=== PATIENT | female | born 1960 | race Caucasian/White ===

== ENCOUNTER 2016-05-01 10:25 | Day surgery (SDC) | payer OTHER ==
[2016-04-28 16:09] VITALS: Ht 154.9 cm; Wt 75.0 kg
[~2016-05-01] VITALS: Ht 154.9 cm; Wt 75.0 kg
[2016-05-01] VITALS (18 sets, daily range): BP systolic 102–139; BP diastolic 64–75; PULSE 75–100; RESP 14–20
[~2016-05-01 10:25] MED LIST: BEN25 PO; CELE100C PO; FENO145T19 PO; FLUT9.9S NASAL; GLIM4TAB PO; LORA10CA PO; MED4DP PO; METF1000 PO; MONT10TA21 PO; PANT40TA3 PO; SOD CHLORIDE 0.9% 1,000 ML IV SCH; VENL75CA89 PO
[2016-05-01] MEDS ORDERED: GABA300C16 PO (11:33)
[2016-05-01] MEDS ORDERED: IBUP800T25 PO (11:33)
[2016-05-01] MEDS ORDERED: MOME13HF INHALATION (11:33)
[2016-05-01] MEDS ORDERED: BETA60LO TP (11:33)
[2016-05-01 11:50] LABS: ADD SCAN DIFF NO
--- NOTE | 2016-05-01 11:54 | RADRPT ---
PROCEDURE: XR Chest. CLINICAL INDICATION: Shortness of breath. Left breast cancer. Preoperative chest x-ray. TECHNIQUE: A single portable view of the chest was obtained. COMPARISON: 04/21/2015 FINDINGS: The cardiomediastinal silhouette is within normal limits. The lungs and pleural spaces are clear. The soft tissues and osseous structures are unremarkable. IMPRESSION: No acute cardiopulmonary disease. RPTAT: HPNM Physician Beto Date Time Electronically viewed and signed by Carloz Diez Physician on 05/01/2016 11:53 /
[2016-05-01 11:56] LABS: ABNORMAL IP MESSAGE 1; BASOPHILS % 0.5 % (0.0-2.0); EOSINOPHILS # 2.1 10^3/ul (0.0-0.5); EOSINOPHILS % 23.5 % (0.0-7.0); HEMATOCRIT 34.3 % (37.0-47.0); HEMOGLOBIN 11.9 g/dl (12.0-16.0); LYMPHOCYTES % 22.2 % (15.0-51.0); MEAN CORPUSCULAR HEMOGLOBIN 29.2 pg (29.0-33.0); MEAN CORPUSCULAR HGB CONC 34.7 g/dl (32.0-37.0); MEAN CORPUSCULAR VOLUME 84.1 fl (82.0-101.0); MEAN PLATELET VOLUME 10.8 fl (7.4-10.4); MONOCYTE # 0.5 10^3/ul (0.3-0.9); MONOCYTES % 6.2 % (0.0-11.0); NEUTROPHIL # 4.1 10^3/ul (1.6-7.5); PLATELET COUNT 204 10^3/UL (140-415); RED BLOOD COUNT 4.08 10^6/ul (4.20-5.40); RED CELL DISTRIBUTION WIDTH 13.9 % (11.5-14.5); WHITE BLOOD COUNT 8.8 10^3/ul (4.8-10.8)
[2016-05-01 12:07] LABS: INR 0.91; PROTIME 12.3 Sec (12.2-14.2)
[2016-05-01 12:08] LABS: PARTIAL THROMBOPLASTIN TIME 25.3 Sec (25.0-35.0)
[2016-05-01 12:19] LABS: POTASSIUM 3.6 mmol/L (3.5-5.1)
[2016-05-01 12:20] LABS: CALCIUM 9.4 mg/dl (8.4-10.2); CREATININE 0.54 mg/dl (0.44-1.00)
[2016-05-01] MEDS ORDERED: D5W-0.45 NACL + KCL 20 MEQ 1,000 ML IV SCH (12:29)
[2016-05-01] MEDS ORDERED: morphine 2 MG INJ IV PRN (12:30)
[2016-05-01] MEDS ORDERED: ACETAMINOPHEN 1000MG/100ML IV 100 ML IVPB PRN (12:30)
[2016-05-01] MEDS ORDERED: ONDANSETRON 4 MG INJ IV PRN ×3 (12:30→17:00)
[2016-05-01] MEDS ORDERED: PROPOFOL 20 ML ONE (13:19)
[2016-05-01] MEDS ORDERED: MIDAZOLAM 1 MG/ML 2 ML INJ ONE (13:20)
[2016-05-01] MEDS ORDERED: ONDANSETRON 4 MG INJ ONE (13:20)
[2016-05-01] MEDS ORDERED: METOCLOPRAMIDE 10 MG INJ ONE (13:20)
[2016-05-01] MEDS ORDERED: FENTAnyl 50 MCG/ML VIAL ONE (13:20)
[2016-05-01] MEDS ORDERED: BUPIVACAINE 0.25%/EPI (SDV) 30 ML INJ ONE (13:23)
[2016-05-01] MEDS ORDERED: CEFAZOLIN 1 GM INJ ONE (13:29)
[2016-05-01] MEDS ORDERED: EPHEDrine SULFATE 50 MG/5 ML SYG ONE (14:00)
[2016-05-01] MEDS ORDERED: DIPHENHYDRAMINE 50 MG INJ IV PRN (14:30)
[2016-05-01] MEDS ORDERED: HYDROmorphONE (0.2 MG/ML) 10ML SYG IV PRN ×3 (14:30)
[2016-05-01] MEDS ORDERED: MEPERIDINE 25 MG INJ IV PRN (14:30)
[2016-05-01] MEDS ORDERED: OXYCODONE/ACETAMINOPHEN (5/325) TAB PO PRN ×2 (14:30)
[2016-05-01] MEDS ORDERED: METOCLOPRAMIDE 10 MG INJ IV PRN (14:30)
--- NOTE | 2016-05-01 15:35 | OPR ---
DATE OF OPERATION: 05/01/2016 PREOPERATIVE DIAGNOSIS: Invasive cancer, left breast. POSTOPERATIVE DIAGNOSIS: Invasive cancer, left breast. OPERATION PERFORMED: Left partial mastectomy and axillary dissection. ANESTHESIA: General. ANESTHESIOLOGIST: MEAGHAN SOLOMON MD. SURGEON: Richie Desir MD DRIER HELPER: Edwardo Horne MD INDICATIONS FOR PROCEDURE: The patient is an unfortunate 55-year-old female who presented with a re latively large palpable mass in her left breast. She also had evidence of axillary metastasis on cl inical exam. A biopsy confirmed the diagnosis of invasive cancer. She was counseled as to the risk s versus benefits of left partial mastectomy with axillary dissection. She consented and was schedu led for surgery. DESCRIPTION OF PROCEDURE: The patient was brought to the operating theater, placed under general an esthesia. The left breast and axillary regions were prepped and draped in usual sterile fashion. A curvilinear incision was made directly over the palpable mass which was in the upper outer quadrant of the breast. Subcutaneous tissue was dissected with cautery. Skin hooks were then utilized to e levate the skin edges and wide circumferential dissection of the tissue associated with the mass the n took place, taking great care to ensure adequate margin. Specimen was elevated, transected, orien tc, and sent for permanent pathologic analysis. The wound was irrigated. Minimal bleeding was con trolled with cautery. The skin was then reapproximated with 4-0 Vicryl suture in subcuticular fashi on. Attention was then directed to performing the axillary dissection. A 4 cm incision was made in the left axillary hairline. Subcutaneous tissue was dissected with cautery down through the clavipector al fascia with blunt dissection along the chest wall. The long thoracic nerve was identified and ke pt out of harm's way. More superiorly, the axillary vein and thoracodorsal neurovascular bundle was identified and kept out of harm's way laterally. Dissection continued until latissimus dorsi muscl e was identified throughout its course. Node bearing tissue between the 2 nerves was then meticulou sly harvested using LigaSure device. Specimen was removed and sent for permanent pathologic analysi s. The wound was irrigated. Minimal bleeding was controlled with cautery. A #10 [place] Wilmar-Pr att drain was then brought through the left mid axillary line, cut to size, laid within the axilla a nd secured in place in the standard fashion with a 2-0 nylon suture. The skin was then closed with 4-0 Vicryl suture in subcuticular fashion and Dermabond was applied to both incisions. The patient tolerated procedure well. Estimated blood loss was 50 mL. There were no complications and the gracia ent was transported in stable condition to the recovery room. Dictated By: RICHIE BAINS/DANIELA Conf#: [id number] DID#: [id number]
[2016-05-01] MEDS ORDERED: GLUCOSE GEL 15 GRAM TUBE PO PRN ×2 (17:00)
[2016-05-01] MEDS ORDERED: NACL 0.9% 3 ML SYG IV SCH (17:00)
[2016-05-01] MEDS ORDERED: HYDROCODONE/APAP (5/325) TAB PO PRN (17:00)
[2016-05-01] MEDS ORDERED: GLUCOSE GEL 15 GRAM TUBE BUCCAL PRN (17:00)
[2016-05-01] MEDS ORDERED: GLUCAGON 1 MG INJ IM PRN (17:00)
[2016-05-01] MEDS ORDERED: ALBUTEROL/IPRATROPIUM (NEB) 3 ML AMP HHN PRN (17:00)
[2016-05-01] MEDS ORDERED: DEXTROSE 50% 50 ML SYRINGE IV PRN ×2 (17:00)
--- NOTE | 2016-05-01 17:08 | HP ---
DATE OF ADMISSION: 05/01/2016 HISTORY OF PRESENT ILLNESS: The patient is a 55-year-old female known to me from previous admission. The patient had a past medical history of asthma and diabetes. The patient was found to have large palpable mass in the left breast and was evaluated by Dr. Desir in general surgery consu ltation. Patient also had evidence of axillary metastasis on clinical exam. The patient underwent biopsy which confirmed the diagnosis of invasive cancer. The patient was brought to the hospital an d underwent left partial mastectomy and axillary dissection. Postoperatively the patient experience d significant pain and the patient will be admitted for further evaluation and management to medical /surgical floor. PAST MEDICAL HISTORY: Include asthma, hyperlipidemia and diabetes. PAST SURGICAL HISTORY: Status post EGD by Dr. Posey in 04/2015 with notion of mild reflux esophagi tis and fundal gastritis. FAMILY HISTORY: Positive for history of asthma, negative for history of breast and ovarian cancer. SOCIAL HISTORY: Patient lives at home with her family. The patient denies any tobacco use, denies any illicit drug use, denies any alcohol use. ALLERGIES: NO KNOWN ALLERGIES. MEDICATIONS ON ADMISSION: 1. Fenofibrate. 2. Gabapentin. 3. Ibuprofen. 4. Claritin. 5. Metformin. 6. Singulair. 7. Venlafaxine. 8. Dulera. REVIEW OF SYSTEMS: A 12-point review of systems is negative unless what mentioned in the HPI. PHYSICAL ASSESSMENT: GENERAL: Well-developed, obese female currently lethargic but easily arousable. VITAL SIGNS: Temperature is 98.2, pulse is 96, blood pressure is 117/68, respiratory rate 19, oxyge n saturation 97% on 2 liters nasal cannula. HEENT: Head is atraumatic, normocephalic. Pupils equal, round, reactive to light and accommodation . Oral mucosa is pink and moist. NECK: Supple, no cervical lymphadenopathy, no thyromegaly. LUNGS: Clear bilaterally. There is no rhonchi, wheezes, rales noted. CARDIOVASCULAR: Normal S1, S2. No murmurs, gallops, clicks, rubs noted. CHEST: Left chest is status post surgery with dry, clean and intact dressing. ABDOMEN: Protuberant, soft, nondistended, nontender. Bowel sounds present. MUSCULOSKELETAL: There is no edema, clubbing, cyanosis. Pulses equal bilaterally 2+. SKIN: There is no rash, petechiae noted. NEUROLOGIC: Patient is lethargic; however, easily arousable, alert and oriented to name and situati on. Moves all extremities. LABORATORY DATA: On admission, CBC: White blood cells 8.8, hemoglobin 11.9, hematocrit 34.3, plate lets 204. Chemistry: Sodium is 144, potassium 3.6, chloride 106, carbon dioxide 24, anion gap 18, BUN is 17, creatinine 0.54, glucose 102, calcium 9.4. PT is 12.3, INR 0.91, PTT is 25.3. ASSESSMENT AND PLAN: 1. Invasive cancer of the left breast status post left partial mastectomy and axillary dissection. 2. Noninsulin dependent diabetes mellitus. 3. Asthma. 4. Hyperlipidemia. We are going to admit patient to medical/surgical floor. Continue IV fluids. Continue Zofran p.r.n . for nausea and morphine, Tylenol IV p.r.n. for pain. We will resume patient's asthma medication. Continue to monitor blood sugar before meals and at bedtime with NovoLog mild algorithm sliding sca le. Resume metformin. Continue incentive spirometer every hour while patient is awake, CBC and BMP tomorrow. Patient received intraoperative antibiotics. Sequential compression device for deep amy ous thrombosis prophylaxis. Further recommendations based on clinical course. Plan of care discuss ed with Dr. Quezada. Dictated By: MAURO ORTEZ ELECTRICAL ENGINEERING MANAGER for GARO QUEZADA MD SR/NTS Conf#: [id number] DID#: [id number]
[2016-05-01] MEDS: INSULIN ASPART [NOVOLOG] 3 ML PEN SC SCH ×2 (17:40→20:44)
[2016-05-01] MEDS: morphine 2 MG INJ IV PRN (17:49)
[2016-05-01] MEDS: metFORMIN 500 MG TAB PO SCH (18:52)
[2016-05-01] MEDS: ALBUTEROL/IPRATROPIUM (NEB) 3 ML AMP HHN SCH (20:00)
[2016-05-01] MEDS: FAMOTIDINE 20 MG INJ IV SCH (20:43)
[2016-05-01] MEDS: 1/2 NS + KCL 20 MEQ 1,000 ML IV SCH (20:43)
[2016-05-01] MEDS: SALMETEROL/FLUTICASONE 250/50 INHA INH SCH (20:43)
[2016-05-01] MEDS ORDERED: MONTELUKAST 10 MG TAB PO SCH (21:00)
[2016-05-02] VITALS: BP 142/77; PULSE 74; RESP 17
[2016-05-02] MEDS: 1/2 NS + KCL 20 MEQ 1,000 ML IV SCH ×2 (02:38→05:12)
[2016-05-02 05:06] VITALS: BP 142/75; PULSE 66; RESP 17
[2016-05-02] MEDS: HYDROCODONE/APAP (5/325) TAB PO PRN ×2 (06:10→19:40)
[2016-05-02 07:21] LABS: ADD SCAN DIFF NO
[2016-05-02 07:37] LABS: BASOPHILS % 0.3 % (0.0-2.0); EOSINOPHILS # 1.8 10^3/ul (0.0-0.5); EOSINOPHILS % 20.6 % (0.0-7.0); HEMATOCRIT 32.1 % (37.0-47.0); HEMOGLOBIN 11.3 g/dl (12.0-16.0); LYMPHOCYTES # 1.7 10^3/ul (0.8-2.9); LYMPHOCYTES % 19.7 % (15.0-51.0); MEAN CORPUSCULAR HEMOGLOBIN 30.1 pg (29.0-33.0); MEAN CORPUSCULAR HGB CONC 35.2 g/dl (32.0-37.0); MEAN CORPUSCULAR VOLUME 85.6 fl (82.0-101.0); MEAN PLATELET VOLUME 11.2 fl (7.4-10.4); MONOCYTE # 0.5 10^3/ul (0.3-0.9); MONOCYTES % 6.2 % (0.0-11.0); NEUTROPHIL # 4.6 10^3/ul (1.6-7.5); NEUTROPHILS % 52.9 % (39.0-77.0); PLATELET COUNT 206 10^3/UL (140-415); RED BLOOD COUNT 3.75 10^6/ul (4.20-5.40); WHITE BLOOD COUNT 8.7 10^3/ul (4.8-10.8)
[2016-05-02 07:40] LABS: POTASSIUM 3.9 mmol/L (3.5-5.1)
[2016-05-02 07:42] LABS: CREATININE 0.59 mg/dl (0.44-1.00)
[2016-05-02 07:43] LABS: CALCIUM 8.9 mg/dl (8.4-10.2)
[2016-05-02] MEDS: INSULIN ASPART [NOVOLOG] 3 ML PEN SC SCH ×3 (07:50→17:45)
[2016-05-02] MEDS: ALBUTEROL/IPRATROPIUM (NEB) 3 ML AMP HHN SCH ×2 (08:00→14:00)
[2016-05-02 08:04] VITALS: BP 133/74; RESP 18
[2016-05-02] MEDS: SALMETEROL/FLUTICASONE 250/50 INHA INH SCH (08:59)
[2016-05-02] MEDS: metFORMIN 500 MG TAB PO SCH ×2 (08:59→17:57)
[2016-05-02] MEDS: FAMOTIDINE 20 MG INJ IV SCH (08:59)
[2016-05-02] MEDS ORDERED: VENLAFAXINE (XR) 75 MG CAP PO SCH (09:00)
[2016-05-02] MEDS: morphine 2 MG INJ IV PRN (13:56)
[2016-05-02] MEDS ORDERED: CEPASTAT LOZENGE MT PRN (18:00)
[2016-05-02] MEDS ORDERED: HYDR-3498 PO (18:53)
--- NOTE | 2016-05-02 18:56 | PN ---
DATE: 05/02/2016 SUBJECTIVE: This is a followup progress note. No complaint. OBJECTIVE: Vital signs 97.9, 71, 18, 133/74, saturation 98% on 2 liter nasal cannula. LABORATORY DATA: WBC 8700, hemoglobin 11.3, hematocrit 32.1. Wilmar-Cline draining serosanguineou s fluid. In last 24 hours, it has drained 60 mL. Dressing is intact. The wrap around is intact an d is not too tight. EXTREMITIES: The patient moves all the fingers, wrist, hand and elbow on the left side. ASSESSMENT: Postop day #1 with partial mastectomy and axillary dissection for related cancer. The patient is currently stable. The nurses are going to teach the patient the care of the Wilmar-Prat t and patient will go home with Wilmar-Cline drain. To measure it at home every night and record it and go to Dr. Desir' office to follow up. The patient to record measurements by herself. The gracia ent states understanding when it was done by one of the nurses and she understood the instructions. Dictated By: ELVI HAQ MD PS/NTS Conf#: [id number] DID#: [id number]
[2016-05-02 19:58] VITALS: BP 118/70; PULSE 64; RESP 18
--- NOTE | 2016-05-03 19:12 | RADRPT ---
Vent Rate: 69 bpm RR Interval: 0 msec [place] Interval: 154 msec QRS Duration: 94 msec QT Interval: 406 msec QTC Interval: 435 msec P-R-T [place]: 41 - 17 - 35 degrees Normal sinus rhythm Normal ECG Electronically Signed By: Russ Arellano [id number]
== END 2016-05-02 19:57 | disposition home or self-care (01) ==
LOC: SDS 10:25 → MS1 17:05 → SDS 05-02 19:57
PROVIDERS: ATTEND Surgery Surgical Oncology
DX: C50.912 Malignant neoplasm of unspecified site of left female breast (principal); C77.3 Secondary and unspecified malignant neoplasm of axilla and upper limb lymph nodes; E11.9 Type 2 diabetes mellitus without complications; J45.909 Unspecified asthma, uncomplicated
CPT/HCPCS: 19301; 38500; 71010; 80048; 82962; 85025; 85610; 85730; 88309; 93005; J0690; J1170; J1815; J2250; J2270; J2405; J2765; J3010; J3480; Z7512; Z7610

== ENCOUNTER 2016-05-14 21:58 | Inpatient (IN) | payer OTHER ==
[~2016-05-14] VITALS: Ht 152.4 cm; Wt 78.7 kg
[~2016-05-14 21:58] MED LIST changes: -BEN25 PO; +BETA60LO TP; -CELE100C PO; -FLUT9.9S NASAL; +GABA300C16 PO; -GLIM4TAB PO; +HYDR-3498 PO; -MED4DP PO; +MOME13HF INHALATION; -PANT40TA3 PO; -SOD CHLORIDE 0.9% 1,000 ML IV SCH
[2016-05-14 22:06] VITALS: Ht 152.4 cm; Wt 78.7 kg
[2016-05-14] MEDS ORDERED: ONDANSETRON 4 MG INJ IV STA (22:59)
[2016-05-14] MEDS ORDERED: morphine 4 MG/ML VIAL IV STA (22:59)
[2016-05-14 23:30] LABS: ADD SCAN DIFF NO
[2016-05-14 23:31] LABS: ABNORMAL IP MESSAGE 1; HEMATOCRIT 37.8 % (37.0-47.0); HEMOGLOBIN 13.2 g/dl (12.0-16.0); MEAN CORPUSCULAR HEMOGLOBIN 29.9 pg (29.0-33.0); MEAN CORPUSCULAR HGB CONC 34.9 g/dl (32.0-37.0); MEAN CORPUSCULAR VOLUME 85.7 fl (82.0-101.0); MEAN PLATELET VOLUME 10.5 fl (7.4-10.4); PLATELET COUNT 261 10^3/UL (140-415); RED BLOOD COUNT 4.41 10^6/ul (4.20-5.40); RED CELL DISTRIBUTION WIDTH 13.5 % (11.5-14.5); WHITE BLOOD COUNT 9.7 10^3/ul (4.8-10.8)
[2016-05-14 23:51] LABS: INR 0.82; PROTIME 11.3 Sec (12.2-14.2); PT RATIO 0.9
[2016-05-14 23:52] LABS: PARTIAL THROMBOPLASTIN TIME 28.6 Sec (25.0-35.0)
[2016-05-14 23:53] LABS: ALBUMIN 4.6 g/dl (3.3-4.9); POTASSIUM 3.7 mmol/L (3.5-5.1)
[2016-05-14 23:55] LABS: BILIRUBIN,INDIRECT 0.2 mg/dl (0-1.1); BILIRUBIN,TOTAL 0.2 mg/dl (0.2-1.3); CREATININE 0.58 mg/dl (0.44-1.00)
[2016-05-14 23:56] LABS: ALBUMIN/GLOBULIN RATIO 1.35; CALCIUM 9.3 mg/dl (8.4-10.2)
[2016-05-15] LABS: ANISOCYTOSIS OCCASIONAL; EOSINOPHILS # 2.2 10^3/ul (0.0-0.5); LYMPHOCYTES # 2.8 10^3/ul (0.8-2.9); MONOCYTE # 0.7 10^3/ul (0.3-0.9); NEUTROPHIL # 3.8 10^3/ul (1.6-7.5); PLATELET ESTIMATE PLT APPEAR ADEQUATE
--- NOTE | 2016-05-15 00:15 | RADRPT ---
PROCEDURE: XR Chest. CLINICAL INDICATION: Sepsis. TECHNIQUE: Portable AP view of the chest was obtained. COMPARISON: 05/01/2016 FINDINGS: The cardiomediastinal silhouette is within upper normal limits. Suboptimal inspiratory response wit h low lung volumes is noted but there is no evidence of lobar infiltrate. There is no evidence for pleural effusion, pneumothorax or pulmonary vascular congestion. The osseous structures are intact with no evidence for acute abnormality. RPTAT:HJJR IMPRESSION: Suboptimal inspiratory response with low lung volumes but no evidence of acute intrathoracic abnorma lity or change from 05/01/2016 allowing for the different degrees of inspiration. Physician Sara Date Time Electronically viewed and signed by Austyn Jackson Physician on 05/15/2016 00:15 JR/
--- NOTE | 2016-05-15 00:29 | RADRPT ---
PROCEDURE: CT chest without contrast CLINICAL INDICATION: Pain at surgical site TECHNIQUE: CT scan of the chest with contrast was performed without intravenous contrast. Coronal and sagittal images were reformatted. The CTDIvol = 15.89 mGy and DLP = 629.18 mGycm. COMPARISON: Chest x-ray 05/14/2016 FINDINGS: Lungs, airway and pleura: The trachea and bronchi are patent as well as normal in caliber. The ran gs are clear of infiltrates, masses or nodules. The pleural spaces are clear, without effusions. Mediastinum, rodney and cardiovascular: The heart is normal in size. There is no evidence for perica rdial effusion. The thoracic aorta is normal in caliber with moderate atherosclerotic calcification in the arch. Mediastinal lymph nodes are within the limits of normal for size estimated at several millimeters in short axis. No hilar abnormalities are seen on this unenhanced exam. The esophagus is normal in caliber. Osseous structures and musculoskeletal findings: There is preservation of bone architecture and min eralization with no evidence for fracture, lytic or blastic lesion. Within the left breast is an ov oid 7.5 x 5.8 cm collection with a gas/fluid level and attenuation of 13 HU, findings suggesting a h ematoma or postoperative seroma (series 3 image 63). The surrounding fat appears within normal limi ts and therefore abscess is believed to be less likely. A drainage catheter is seen within the left axilla but the distal tip is pointing in a cephalad manner posterior to the previously mentioned co llection that is in the more anterior aspect of the breast. The right axilla is unremarkable. Visualized upper abdomen: No abnormalities are identified. The adrenal glands are normal bilateral ly. RPTAT:HJJR IMPRESSION: 1. Approximately 7.5 x 5.8 cm collection with gas/fluid level in the left breast parenchyma consist ent with a postoperative seroma or hematoma, the left axillary drainage catheter is remote from the collection. 2. No mass, lymphadenopathy, or focal acute infiltrate is identified, the intrathoracic structures are unremarkable. Physician Sara Date Time Electronically viewed and signed by Physician Sara on 05/15/2016 00:28 NEHAL
[2016-05-15 01:00] VITALS: PULSE 74; TEMP 98
[2016-05-15] MEDS ORDERED: VANCOMYCIN 1 GM (PMX) 250 ML IVPB ONE (01:00)
[2016-05-15] MEDS ORDERED: CEFEPIME 2GM/50 ML (PMX) 50 ML IVPB STA (01:00)
[2016-05-15] MEDS ORDERED: SODIUM CHLORIDE 0.9% 1L BAG IV* STA (01:01)
--- NOTE | 2016-05-15 01:32 | ERA ---
ER Documentation Chief Complaint Date/Time DATE: 05/15/16 TIME: 01:29 Chief Complaint s/p left mastectomy 12 days ago, c/o pain/swelling surgery site HPI This is a 55 year female 12 days status post mastectomy comes in with pain and swelling of the surgical site and at the tube drainage site. She has had alternating fevers and chills as well. No nausea no vomiting. No trauma. No other current complaints. ROS All systems reviewed and are negative except as per history of present illness. Medications Home Meds Active Scripts Hydrocodone Bit-Acetaminophen (Hydrocodone Bit-APAP) 5-325MG Tablet, 2 TAB PO Q6H Y for SEVERE PAIN LEVEL 7-10, #30 TAB Prov:MAURO ORTEZ 05/02/16 Reported Medications Betamet Diprop/Prop Gly (Betamethasone Dp 0.05% Lotion) 60 Ml Lotion, 60 ML TP, BOTTLE 05/01/16 Mometasone-Formoterol (Dulera) 200-5 Mcg/Inh - 13 Gm Hfa.aer.ad, 1 PUFFS INHALATION BID, #1 INHALER 05/01/16 Gabapentin* (Gabapentin*) 300 Mg Capsule, 300 MG PO BID, #60 CAP 05/01/16 Fenofibrate Nanocrystallized* (Fenofibrate*) 145 Mg Tablet, 145 MG PO DAILY, TAB 04/21/15 Montelukast Sodium* (Singulair*) 10 Mg Tablet, 10 MG PO QHS, #30 TAB 04/21/15 Loratadine* (Claritin*) 10 Mg Capsule, 10 MG PO DAILY, CAP 04/21/15 Metformin Hcl* (Metformin Hcl*) 1,000 Mg Tablet, 1000 MG PO BID WITH MEALS, #30 TAB 04/21/15 Venlafaxine Hcl* (Venlafaxine Hcl ER*) 75 Mg Cap.er.24h, 75 MG PO DAILY, CAP 04/21/15 Allergies Allergies: Coded Allergies: No Known Allergy (Unverified , 05/14/16) PMhx/Soc History of Surgery: Yes (left breast mastectomy 04/30/2016) Anesthesia Reaction: No Hx Neurological Disorder: No Hx Respiratory Disorders: Yes (asthma) Hx Cardiac Disorders: Yes (high cholesterol) Hx Psychiatric Problems: No Hx Miscellaneous Medical Probl: Yes (LT BREAST CA,diabetes) Hx Alcohol Use: Yes (wine,occasionally) Hx Substance Use: No Hx Tobacco Use: No Smoking Status: Never smoker Physical Exam Vitals Vital Signs Date Time Temp Pulse Resp B/P Pulse Ox O2 Delivery O2 Flow Rate FiO2 05/15/16 01:00 98.0 74 20 147/85 20 Room Air 05/14/16 22:06 97.8 86 20 193/91 20 Physical Exam Const: [] Head: Atraumatic Eyes: Normal Conjunctiva ENT: Normal External Ears, Nose and Mouth. Neck: Full range of motion..~ No meningismus. Resp: Clear to auscultation bilaterally Cardio: Regular rate and rhythm, no murmurs Abd: Soft, non tender, non distended. Normal bowel sounds Skin: Surgical site on breast of mild erythema. More concerning is around the drain site with a surrounding erythema and induration. Back: No midline or flank tenderness Ext: No cyanosis, or edema Neur: Awake and alert Psych: Normal Mood and Affect Result Diagram: 05/14/16230005/14/161 Results 24 hrs Laboratory Tests Test 05/14/16 23:01 White Blood Count 9.710^3/ul Red Blood Count 4.4110^6/ul Hemoglobin 13.2g/dl Hematocrit 37.8% Mean Corpuscular Volume 85.7fl Mean Corpuscular Hemoglobin 29.9pg Mean Corpuscular Hemoglobin Concent 34.9g/dl Red Cell Distribution Width 13.5% Platelet Count 77309^3/UL Mean Platelet Volume 10.5fl Neutrophils % 39.0% Band Neutrophils % 2.0% Lymphocytes % 29.0% Monocytes % 7.0% Eosinophils % 23.0% Neutrophils # 3.810^3/ul Lymphocytes # 2.810^3/ul Monocytes # 0.710^3/ul Eosinophils # 2.210^3/ul Platelet Estimate PLT APPEAR ADEQUATE Anisocytosis OCCASIONAL Prothrombin Time 11.3Sec Prothrombin Time Ratio 0.9 INR International Normalized Ratio 0.82 Activated Partial Thromboplast Time 28.6Sec Sodium Level 138mmol/L Potassium Level 3.7mmol/L Chloride Level 101mmol/L Carbon Dioxide Level 22mmol/L Anion Gap 19 Blood Urea Nitrogen 16mg/dl Creatinine 0.58mg/dl Glucose Level 180mg/dl Lactic Acid Level 3.4mmol/L Calcium Level 9.3mg/dl Total Bilirubin 0.2mg/dl Direct Bilirubin 0.00mg/dl Indirect Bilirubin 0.2mg/dl Aspartate Amino Transf (AST/SGOT) 40IU/L Alanine Aminotransferase (ALT/SGPT) 60IU/L Alkaline Phosphatase 134IU/L Total Protein 8.0g/dl Albumin 4.6g/dl Globulin 3.40g/dl Albumin/Globulin Ratio 1.35 Current Medications Medications (Trade) Dose Ordered Sig/Kianna Route PRN Reason Start Time Stop Time Status Last Admin Dose Admin Morphine Sulfate (morphine) 4 mg ONCE STAT IV 05/14/16 22:59 05/14/16 23:00 DC 05/14/16 23:21 Ondansetron HCl 4 mg 4 mg ONCE STAT IV 05/14/16 22:59 05/14/16 23:00 DC 05/14/16 23:21 Cefepime HCl 50 ml @ 100 mls/hr ONCE STAT IVPB 05/15/16 01:00 05/15/16 01:29 DC 05/15/16 01:10 Vancomycin HCl (Vancocin) 250 ml @ 125 mls/hr ONCE ONCE IVPB 05/15/16 01:00 05/15/16 02:59 Sodium Chloride (NS) 2,420 ml BOLUS OVER 2 HOURS STAT IV* 05/15/16 01:01 05/15/16 01:02 DC 05/15/16 01:10 Procedures/MDM EKG: Rate/Rhythm: Normal Sinus Rhythm QRS, ST, T-waves: No changes consistent w/ acute ischemia Impression: No evidence of ischemia or arrhythmia Chest X-ray 1V Interpreted by me: Soft Tissue: No acute abnormalities Bones: No acute abnormalities Mediastinum/Cardiac Silhouette/Lungs: [No acute abnormalities] Patient's infectious symptoms have not stabilized and the patient is at risk of rapid decompensation. The patient will be admitted for careful hydration, antibiotic therapy, and infectious source control. Severe Sepsis Assessment: Infectious Source: Skin End organ damage indicated by: [Lactate > 2.0 mmol/L Severe Sepsis Managment: Blood Cultures X 2 before broad spectrum antibiotics initiated within 3 hours of recognition. 30 ml/kg NS bolus Completed Initial Lactate: 3.4 Repeat Lactate pending Critical Care: Time: 45 minutes Treatments/Evaluations: Emergent fluid management, while maintaining close respiratory support. Immediate broad spectrum antibiotic therapy. Simultaneous assessment for possible sources in order to direct therapy. Consideration for invasive and chemical support to prevent respiratory or cardiac collapse. Septic Shock Assessment (1 hour post 30 ml/kg fluid bolus): Hypotension (SBP < 90 or 40 mmHg drop, MAP < 65): [No] Lactic acid > 4.0 [No] Accepting Care Team: Current data and ongoing care discussed. Time: 133 Primary Provider: Dr. Bautista Consulting: Per primary Outstanding Data: none Departure Diagnosis: Primary Impression: Postoperative complication Qualified Code: L76.82 - Other postoperative complication of skin Additional Impressions: Sepsis Qualified Code: A41.9 - Sepsis, due to unspecified organism Cellulitis Qualified Code: L03.818 - Cellulitis of other specified site Postoperative infection Qualified Code: T81.4XXA - Postoperative infection, initial encounter Condition: Serious RUCHI BARDALES May 15, 2016 01:32
[2016-05-15 04:00] VITALS: BP 143/71; RESP 18
[2016-05-15] MEDS ORDERED: ACETAMINOPHEN 325 MG TAB PO PRN (04:00)
[2016-05-15] MEDS ORDERED: GLUCOSE GEL 15 GRAM TUBE BUCCAL PRN (04:30)
[2016-05-15] MEDS ORDERED: DEXTROSE 50% 50 ML SYRINGE IV PRN ×2 (04:30)
[2016-05-15] MEDS ORDERED: GLUCAGON 1 MG INJ IM PRN (04:30)
[2016-05-15] MEDS ORDERED: GLUCOSE GEL 15 GRAM TUBE PO PRN ×2 (04:30)
[2016-05-15 05:57] LABS: ADD SCAN DIFF NO
[2016-05-15] MEDS ORDERED: VANCOMYCIN IV PER PHARMACY XX SCH (06:00)
[2016-05-15 06:19] LABS: BASOPHILS % 0.5 % (0.0-2.0); EOSINOPHILS # 1.4 10^3/ul (0.0-0.5); EOSINOPHILS % 17.1 % (0.0-7.0); HEMATOCRIT 35.4 % (37.0-47.0); HEMOGLOBIN 12.1 g/dl (12.0-16.0); LYMPHOCYTES # 1.9 10^3/ul (0.8-2.9); LYMPHOCYTES % 23.7 % (15.0-51.0); MEAN CORPUSCULAR HEMOGLOBIN 29.7 pg (29.0-33.0); MEAN CORPUSCULAR HGB CONC 34.2 g/dl (32.0-37.0); MEAN CORPUSCULAR VOLUME 86.8 fl (82.0-101.0); MEAN PLATELET VOLUME 10.7 fl (7.4-10.4); MONOCYTE # 0.6 10^3/ul (0.3-0.9); MONOCYTES % 7.3 % (0.0-11.0); NEUTROPHILS % 50.5 % (39.0-77.0); PLATELET COUNT 240 10^3/UL (140-415); RED BLOOD COUNT 4.08 10^6/ul (4.20-5.40); RED CELL DISTRIBUTION WIDTH 13.9 % (11.5-14.5); WHITE BLOOD COUNT 7.9 10^3/ul (4.8-10.8)
[2016-05-15 06:28] LABS: POTASSIUM 3.8 mmol/L (3.5-5.1)
[2016-05-15 06:31] LABS: CALCIUM 8.7 mg/dl (8.4-10.2); CREATININE 0.65 mg/dl (0.44-1.00)
[2016-05-15] MEDS: INSULIN ASPART [NOVOLOG] 3 ML PEN SC SCH ×4 (07:30→21:00)
[2016-05-15] MEDS: CEFEPIME 1GM/50 ML (PMX) 50 ML IVPB SCH ×2 (08:13→21:18)
[2016-05-15 08:25] VITALS: BP 144/78; RESP 18
[2016-05-15] MEDS ORDERED: VANCOMYCIN 1 GM in NS 250 ML IVPB SCH (09:00)
[2016-05-15] MEDS ORDERED: MOMETASONE 0.24 GM INHALER INH SCH (11:00)
[2016-05-15] MEDS: GABAPENTIN 300 MG CAP PO SCH ×2 (12:10→21:19)
[2016-05-15] MEDS: VANCOMYCIN 1 GM in NS 250 ML IVPB SCH (12:10)
[2016-05-15] MEDS: SALMETEROL/FLUTICASONE 250/50 INHA INH SCH ×2 (12:10→21:19)
--- NOTE | 2016-05-15 14:36 | HP ---
DATE OF ADMISSION: 05/15/2016 CHIEF COMPLAINT: Pain and swelling at the left mastectomy site. HISTORY OF PRESENT ILLNESS: The patient is a 55-year-old female known to me from previous admission . The patient has invasive cancer of the left breast and patient underwent a left partial mastectom y and axillary dissection on 05/01/2016, and the patient was discharged in stable condition. The adriana bernstein was seen in Dr. Desir' office postoperatively and patient complains of pain and swelling at th e surgical site and also severe pain at the SCOTT axillary drainage site. Patient also complains of fe vers and chills. Denies any nausea, vomiting. Denies any shortness of breath. Denies any trauma, denies any bilateral lower extremity swelling. The patient underwent a CT of the chest which reveal ed approximately 7.5 x 5.8 cm collection with gas and fluid level in the left breast parenchyma, con sistent with postoperative seroma or hematoma and notion of the left axillary drainage catheter is r emote from the collection. No mass, lymphadenopathy or focal acute infiltrate is and identified. T he intrathoracic structures are unremarkable. The patient was started on broad spectrum antibiotics and admitted for further evaluation and management. PAST MEDICAL HISTORY: Positive for left breast invasive cancer, asthma, hyperlipidemia and diabetes mellitus. PAST SURGICAL HISTORY: Per HPI and status post EGD in April 2015 with notion of mild reflux esophag itis and fungal gastritis. FAMILY HISTORY: Positive for history of asthma, negative for any history of breast or ovarian cance r. SOCIAL HISTORY: The patient lives at home with the family, patient denies any tobacco use, denies a [place] alcohol use, denies any illicit drug use. ALLERGIES: NO KNOWN ALLERGIES. HOME MEDICATIONS: Include: 1. Fenofibrate. 2. Gabapentin. 3. Loratadine. 4. [place]. 5. Metformin. 6. Singulair. 7. Venlafaxine. 8. Dulera. REVIEW OF SYSTEMS: A 12-point review of systems is negative unless what mentioned in the HPI. PHYSICAL ASSESSMENT GENERAL: Well-developed, obese female currently is awake, alert. VITAL SIGNS: Temperature 98.5, pulse 73, blood pressure 144/78, respiratory rate 18, oxygen saturat ion 94% on room air. HEENT: Head is atraumatic, normocephalic. Pupils equal, round, reactive to light and accommodation . Oral mucosa is pink and moist. NECK: Supple, no cervical lymphadenopathy, no thyromegaly. BREAST: The patient with left breast with surgical incision which is intact. There is no erythema; however, there is tenderness on palpation at the breast site and axillary site. The patient has a left axillary SCOTT. CHEST: There are no rhonchi, wheezes, rales noted. CARDIOVASCULAR: Normal S1, S2. No murmurs, gallops, clicks, rubs noted. ABDOMEN: Round, soft, nondistended, nontender. Bowel sounds present. No guarding. EXTREMITIES: No edema, clubbing, cyanosis. Pulses equal bilaterally 2+. SKIN: No rash, petechiae noted. NEUROLOGIC: The patient is awake, alert and oriented x4. No focal deficits noted. Motor strength 5/5 in all extremities. LABORATORY DATA: On admission, a CBC: White blood cells 9.7, hemoglobin 13.0, hematocrit 37.8, jw telets 261. Chemistry: Sodium is 138, potassium 3.7, chloride 101, carbon dioxide 21, anion gap 19 , BUN is 16, creatinine 0.58, glucose 180. PT is 11.3, INR is 0.82, aPTT is 28.6. IMAGING: Chest x-ray suboptimal inspiratory response with low lung volumes but no evidence of acute intrathoracic abnormality or change from 05/01/2016. ASSESSMENT AND PLAN: 1. Postoperative seroma versus hematoma, rule out possible abscess, will continue broad spectrum an tibiotics. Dr. Desir will be following the patient in general surgery consultation. Continue [place] and morphine for pain and Zofran p.r.n. for nausea. 2. Diabetes mellitus type 2. Continue metformin and NovoLog per moderate algorithm sliding scale. 3. Asthma by history. Continue Advair and DuoNeb. 4. Hyperlipidemia. Continue Tricor. 5. Will continue Lovenox for deep venous thrombosis prophylaxis and Pepcid for peptic ulcer disease prophylaxis. 6. Further recommendations based on clinical course. Plan of care discussed with Dr. Quezada. Dictated By: MAURO ORTEZ HOSPITALIST PHYSICIAN for GARO QUEZADA MD SR/NTS Conf#: [id number] DID#: [id number]
[2016-05-15] MEDS: metFORMIN 500 MG TAB PO SCH (17:35)
[2016-05-15] MEDS: MONTELUKAST 10 MG TAB PO SCH (21:19)
[2016-05-15 21:38] VITALS: BP 137/66; RESP 18
[2016-05-15] MEDS: morphine 2 MG INJ IV PRN (21:47)
[2016-05-16] MEDS ORDERED: ACCU-CHEK XX SCH (02:00)
[2016-05-16] MEDS: ACCU-CHEK XX SCH (02:00)
[2016-05-16] MEDS: VANCOMYCIN 1 GM in NS 250 ML IVPB SCH ×2 (02:40→12:26)
--- NOTE | 2016-05-16 02:59 | CONS ---
DATE OF ADMISSION: 05/15/2016 DATE OF CONSULTATION: INFECTIOUS DISEASE CONSULTATION REQUESTING PHYSICIAN: Dr. Wolf Prakash. I am seeing this patient for Dr. Percy Mei. HISTORY OF PRESENT ILLNESS: She is a 55-year-old female that was admitted on 05/15/2016 wi th a chief complaint of pain and swelling at a surgical site and tube drainage of a partial mastecto my and node dissection of left breast 12 days prior to admission. She began having pain and swellin g at the surgical site at the tube drainage site and had subjective fever and chills. The patient's white count on admission revealed a 9700 white count, hematocrit 37% with 39 polys, 2 bands, 2, lym phocytes, 23 eosinophils. BUN 16, creatinine 0.5. Glucose 180. CT scan of the chest revealed a 7. 5 x 5.8 cm fluid collection in the left axilla containing some gas. The patient's chest x-ray revea led low lung volumes but no acute changes. PAST MEDICAL HISTORY: Asthma, allergies, allergic rhinitis, depression, hyperlipidemia and obesity. ALLERGIES: HAS NO KNOWN ALLERGIES. MEDICATIONS: Consist of: 1. Dulera inhaler. 2. Montelukast 10 mg. 3. Metformin 1000 mg twice a day. 4. Loratadine 10 mg daily. 5. Venlafaxine 75 mg daily. 6. Fenofibrate 145. 7. Betamethasone dipropionate . SOCIAL HISTORY: She is . She occasionally drinks wine. Does not smoke. After admission to the hospital, the patient was begun on cefepime and vancomycin. Cultures have be en obtained but are pending. 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 VITAL SIGNS: The blood pressure is 137/66, pulse 75 and temperature 98.2 and pulse oximetry 93% on room air. HEENT: The patient's pupils are equal, round, and reactive to light. Extraocular movements are ful l. The mouth has moist mucous membranes. NECK: Obese and short. There is no jugular venous distention. There is no adenopathy. BREASTS: There is a healing left upper quadrant surgical scar and a tube with dark clear to brownis h fluid approximately 10 Ml. It is coming from a drain site in the left axilla. She is tender adrienne g the axillary tail of the breast and also more posterior where there appears to be increased amount of induration but no redness or drainage around the insertion of the tube that runs to the drainage reservoir. She says she is tender in these extreme areas just described. CHEST: Clear to auscultation. HEART: Regular without gallop, murmur or rub. ABDOMEN: Obese, soft, no palpable organs or masses. EXTREMITIES: Reveal no edema, cyanosis or clubbing. INITIAL IMPRESSION: 1. Cellulitis and wound infection left breast, axillary portion, and status postoperative partial m astectomy left breast with seroma in the left axilla for carcinoma of the breast. 2. Diabetes mellitus. 3. Asthma. 4. Allergic rhinitis. 5. Hyperlipidemia. 6. Obesity. RECOMMENDATIONS: I would change the cefepime that the patient is on for ceftriaxone and continue va ncomycin pending culture and sensitivity results. Thank you for referring this interesting patient to Dr. Mei. Dictated By: Pebbles GUZMAN/DANIELA Conf#: [id number] DID#: [id number]
[2016-05-16 05:48] LABS: ADD SCAN DIFF NO
[2016-05-16 06:00] LABS: BASOPHIL # 0.1 10^3/ul (0.0-0.1); BASOPHILS % 0.6 % (0.0-2.0); EOSINOPHILS # 1.5 10^3/ul (0.0-0.5); EOSINOPHILS % 17.9 % (0.0-7.0); HEMOGLOBIN 12.2 g/dl (12.0-16.0); LYMPHOCYTES # 1.7 10^3/ul (0.8-2.9); LYMPHOCYTES % 19.9 % (15.0-51.0); MEAN CORPUSCULAR HEMOGLOBIN 29.1 pg (29.0-33.0); MEAN CORPUSCULAR HGB CONC 33.9 g/dl (32.0-37.0); MEAN CORPUSCULAR VOLUME 85.9 fl (82.0-101.0); MEAN PLATELET VOLUME 10.7 fl (7.4-10.4); MONOCYTE # 0.6 10^3/ul (0.3-0.9); MONOCYTES % 7.1 % (0.0-11.0); NEUTROPHIL # 4.6 10^3/ul (1.6-7.5); NEUTROPHILS % 53.7 % (39.0-77.0); PLATELET COUNT 218 10^3/UL (140-415); RED BLOOD COUNT 4.19 10^6/ul (4.20-5.40); RED CELL DISTRIBUTION WIDTH 13.8 % (11.5-14.5); WHITE BLOOD COUNT 8.5 10^3/ul (4.8-10.8)
[2016-05-16 06:57] LABS: POTASSIUM 3.7 mmol/L (3.5-5.1)
[2016-05-16 07:00] LABS: CREATININE 0.5 mg/dl (0.44-1.00)
[2016-05-16 07:01] LABS: CALCIUM 9.3 mg/dl (8.4-10.2)
[2016-05-16] MEDS: INSULIN ASPART [NOVOLOG] 3 ML PEN SC SCH ×4 (07:30→21:00)
[2016-05-16] MEDS: CEFTRIAXONE 1 GM/50 ML (PMX) 50 ML IVPB SCH (08:08)
[2016-05-16] MEDS: metFORMIN 500 MG TAB PO SCH ×2 (08:09→17:04)
[2016-05-16] MEDS: GABAPENTIN 300 MG CAP PO SCH ×2 (08:09→20:35)
[2016-05-16] MEDS: LORATADINE 10 MG TAB PO SCH (08:10)
[2016-05-16 08:34] VITALS: BP 137/71; RESP 18
[2016-05-16] MEDS: FENOFIBRATE 145 MG TAB PO SCH (08:55)
[2016-05-16] MEDS: morphine 2 MG INJ IV PRN (09:43)
[2016-05-16] MEDS: VENLAFAXINE 75 MG TABLET PO SCH (11:03)
[2016-05-16] MEDS: ONDANSETRON 4 MG INJ IV PRN (12:59)
--- NOTE | 2016-05-16 14:56 | PN ---
DATE: 05/16/2016 INFECTIOUS DISEASE PROGRESS NOTE SUBJECTIVE: No acute changes. The patient is alert, complaining of generalized body pain. She is in no distress. Afebrile. On vancomycin and Rocephin. WBC 8.5, no shift, no bands. BUN 13, creat inine 0.50. PHYSICAL EXAMINATION: GENERAL: Obese, well-developed, 55-year-old woman who is alert, in no distress. HEENT: Head atraumatic, normocephalic. Sclerae anicteric. Buccal mucosa pink. NECK: Supple. CHEST: Rise symmetrical. Breath sounds diminished to bases. HEART: S1, S2. ABDOMEN: Soft, bowel tones present. EXTREMITIES: Without cyanosis or edema. ASSESSMENT: 1. Left breast cellulitis, status post partial mastectomy with seroma in the left axilla. 2. Breast cancer. 3. Diabetes. 4. Obesity. PLAN: The patient remains stable. Continue present care, antibiotics. Follow surgical recommendat ions and cultures. Dictated By: NIR PANDA ELECTROPHYSIOLOGY NURSE PRACTITIONER for TESHA BOYLE/DANIELA Conf#: [id number] DID#: [id number]
--- NOTE | 2016-05-16 16:02 | PN ---
Date/Time of Note Date/Time of Note DATE: 05/16/16 TIME: 15:58 Assessment/Plan VTE Prophylaxis VTE Prophylaxis Intervention: SCD's Assessment/Plan Chief Complaint/Hosp Course ASSESSMENT AND PLAN: 1. Postoperative seroma versus hematoma, rule out possible abscess, continue broad spectrum antibiotics. Dr. Desir will be following the patient in general surgery consultation. Continue [place] and morphine for pain and Zofran p.r.n. for nausea. Dr. Mei is following in infection disease consultation. Continue antibiotics per ID. 2. Diabetes mellitus type 2. Continue metformin and NovoLog per moderate algorithm sliding scale. 3. Asthma by history. Continue Advair and DuoNeb. 4. Hyperlipidemia. Continue Tricor. Continue Lovenox for deep venous thrombosis prophylaxis and Pepcid for peptic ulcer disease prophylaxis. Further recommendations based on clinical course. Plan of care discussed with Dr. Prakash. Problems: Subjective 24 Hr Interval Summary Free Text/Dictation Patient's pain is well controlled, patient denies any nausea and vomiting. Exam/Review of Systems Vital Signs Vitals Vital Signs Date Time Temp Pulse Resp B/P Pulse Ox O2 Delivery O2 Flow Rate FiO2 05/16/16 08:34 98.3 79 18 137/71 97 05/15/16 01:00 Room Air Intake and Output 05/15/16 05/15/16 05/16/16 15:00 23:00 07:00 Intake Total 300 ml 980 ml 970 ml Output Total 3 ml 3 ml Balance 300 ml 977 ml 967 ml Exam PHYSICAL ASSESSMENT GENERAL: Well-developed, obese female currently is awake, alert. HEENT: Head is atraumatic, normocephalic. PERRLA. NECK: Supple, no cervical lymphadenopathy, no thyromegaly. BREAST: The patient with left breast with surgical incision which is intact. There is no erythema; however, there is tenderness on palpation at the breast site and axillary site. The patient has a left axillary SCOTT. CHEST: There are no rhonchi, wheezes, rales noted. CARDIOVASCULAR: Normal S1, S2. No murmurs, gallops, clicks, rubs noted. ABDOMEN: Round, soft, nondistended, nontender. Bowel sounds present. No guarding. EXTREMITIES: No edema, clubbing, cyanosis. Pulses equal bilaterally 2+. SKIN: No rash, petechiae noted. NEUROLOGIC: The patient is awake, alert and oriented x4 Results Result Diagram: 05/16/16 0520 05/16/16 0520 Results 24 hrs Laboratory Tests Test 05/15/16 16:42 05/15/16 21:26 05/16/16 02:33 05/16/16 05:20 Bedside Glucose 126 132 117 White Blood Count 8.5 Red Blood Count 4.19 L Hemoglobin 12.2 Hematocrit 36.0 L Mean Corpuscular Volume 85.9 Mean Corpuscular Hemoglobin 29.1 Mean Corpuscular Hemoglobin Concent 33.9 Red Cell Distribution Width 13.8 Platelet Count 218 Mean Platelet Volume 10.7 H Neutrophils % 53.7 Lymphocytes % 19.9 Monocytes % 7.1 Eosinophils % 17.9 H Basophils % 0.6 Nucleated Red Blood Cells % 0.0 Neutrophils # 4.6 Lymphocytes # 1.7 Monocytes # 0.6 Eosinophils # 1.5 H Basophils # 0.1 Nucleated Red Blood Cells # 0.0 Sodium Level 138 Potassium Level 3.7 Chloride Level 102 Carbon Dioxide Level 27 Anion Gap 13 Blood Urea Nitrogen 13 Creatinine 0.50 Glucose Level 122 Hemoglobin A1c 5.5 Calcium Level 9.3 Test 05/16/16 07:24 05/16/16 11:34 05/16/16 12:09 Bedside Glucose 116 126 Vancomycin Level Trough 8.4 L Medications Medications Current Medications Acetaminophen (Tylenol Tab) 650 mg Q4H PRN PO PAIN AND OR ELEVATED TEMP; Start 05/15/16 at 04:00 Acetaminophen/ Hydrocodone Bitart ([place] (5/325)) 1 tab Q4H PRN PO MODERATE PAIN LEVEL 4-6; Start 05/15/16 at 04:00 Morphine Sulfate (morphine) 2 mg Q4H PRN IV SEVERE PAIN LEVEL 7-10 Last administered on 05/16/16 09:43; Admin Dose 2 MG; Start 05/15/16 at 04:00 Ondansetron HCl (Zofran Inj) 4 mg Q6H PRN IV NAUSEA AND/OR VOMITING Last administered on 05/16/16 12:59; Admin Dose 4 MG; Start 05/15/16 at 04:00 Diagnostic Test (Pha) (Accu-Chek) If HS dose is administer... 02 XX ; Start at 02:00 Miscellaneous Information 1 ea NOTE XX ; Start 05/15/16 at 04:30 Glucose (Glutose) 15 gm Q15M PRN PO DECREASED GLUCOSE; Start 05/15/16 at 04:30 Glucose (Glutose) 22.5 gm Q15M PRN PO DECREASED GLUCOSE; Start 05/15/16 at 04: 30 Dextrose (D50w Syringe) 25 ml Q15M PRN IV DECREASED GLUCOSE; Start 05/15/16 at 04:30 Dextrose (D50w Syringe) 50 ml Q15M PRN IV DECREASED GLUCOSE; Start 05/15/16 at 04:30 Glucagon (Glucagen) 1 mg Q15M PRN IM DECREASED GLUCOSE; Start 05/15/16 at 04:30 Glucose (Glutose) 15 gm Q15M PRN BUCCAL DECREASED GLUCOSE; Start 05/15/16 at 04 :30 Fenofibrate (Tricor) 145 mg DAILY PO Last administered on 05/16/16 08:55; Admin Dose 145 MG; Start 05/16/16 at 09:00 Gabapentin (Neurontin) 300 mg BID PO Last administered on 05/16/16 08:09; Admin Dose 300 MG; Start 05/15/16 at 11:00 Loratadine (Claritin) 10 mg DAILY PO Last administered on 05/16/16 08:10; Admin Dose 10 MG; Start 05/16/16 at 09:00 Montelukast Sodium (Singulair) 10 mg HS PO Last administered on 05/15/16 21:19 ; Admin Dose 10 MG; Start 05/15/16 at 21:00 Venlafaxine HCl (Effexor) 75 mg DAILY PO Last administered on 05/16/16 11:03; Admin Dose 75 MG; Start 05/16/16 at 09:00 Salmeterol Xinafoate/ Fluticasone 1 inh 1 inh BID INH Last administered on 05/15 21:19; Admin Dose 1 INH; Start 05/15/16 at 12:00 Ceftriaxone Sodium 50 ml @ 0 mls/hr DAILY IVPB Last administered on 05/16/16 08:08; Admin Dose 0 MLS/HR; Start 05/16/16 at 09:00; Stop 05/24/16 at 12:00 Vancomycin HCl/ Sodium Chloride (Vancocin/NS) 250 ml @ 83.333 mls/ hr Q12H IVPB ; Start 05/17/16 at 01:00 MAURO ORTEZ May 16, 2016 16:02
[2016-05-16] MEDS: MONTELUKAST 10 MG TAB PO SCH (20:35)
[2016-05-16] MEDS: SALMETEROL/FLUTICASONE 250/50 INHA INH SCH (21:00)
[2016-05-16 21:25] VITALS: BP 129/74; RESP 20
[2016-05-17] MEDS: VANCOMYCIN 1.25 GM in SOD CHLORIDE 0.9% 250 ML IVPB SCH ×2 (00:36→13:45)
[2016-05-17] MEDS: ACCU-CHEK XX SCH (02:00)
[2016-05-17 05:23] LABS: ADD SCAN DIFF NO
[2016-05-17 05:28] LABS: BASOPHIL # 0.1 10^3/ul (0.0-0.1); BASOPHILS % 0.7 % (0.0-2.0); EOSINOPHILS # 1.5 10^3/ul (0.0-0.5); EOSINOPHILS % 17.7 % (0.0-7.0); HEMATOCRIT 35.7 % (37.0-47.0); HEMOGLOBIN 12.2 g/dl (12.0-16.0); LYMPHOCYTES # 1.8 10^3/ul (0.8-2.9); LYMPHOCYTES % 21.1 % (15.0-51.0); MEAN CORPUSCULAR HEMOGLOBIN 29.5 pg (29.0-33.0); MEAN CORPUSCULAR HGB CONC 34.2 g/dl (32.0-37.0); MEAN CORPUSCULAR VOLUME 86.2 fl (82.0-101.0); MEAN PLATELET VOLUME 10.7 fl (7.4-10.4); MONOCYTE # 0.5 10^3/ul (0.3-0.9); MONOCYTES % 6.2 % (0.0-11.0); NEUTROPHIL # 4.6 10^3/ul (1.6-7.5); NEUTROPHILS % 53.5 % (39.0-77.0); PLATELET COUNT 234 10^3/UL (140-415); RED BLOOD COUNT 4.14 10^6/ul (4.20-5.40); WHITE BLOOD COUNT 8.7 10^3/ul (4.8-10.8)
[2016-05-17 05:41] LABS: POTASSIUM 3.9 mmol/L (3.5-5.1)
[2016-05-17 05:44] LABS: CREATININE 0.51 mg/dl (0.44-1.00)
[2016-05-17 05:45] LABS: CALCIUM 9.4 mg/dl (8.4-10.2)
[2016-05-17] MEDS: INSULIN ASPART [NOVOLOG] 3 ML PEN SC SCH ×4 (07:30→22:00)
--- NOTE | 2016-05-17 07:40 | PN ---
DATE: Thank you for consultation this patient was admitted on the night of 2016 because of severe pain in the left axillary area and left breast site of previous operation. HISTORY OF PRESENT ILLNESS: Apparently, this patient had a partial mastectomy with axillary dissection for invasive cancer, was performed on the 05/01/2016 and postop was followed by Dr. Desir in the office. On 05/14/2016 the patient came to the emergency room complaining of severe pain especially at the site of the Wilmar-Cline drain, and also chills and fever, and so was seen in the emergency room by the emergency room physician, and at that time the VITAL SIGNS: Were as follows: Temperature 97.8, heart rate 86, respirations 20 , blood pressure ___135_/91. ____the patient was admitted. LABORATORY DATA: WBC was 9700 with 39% neutrophils, and a CT scan of the chest was performed which revealed that: 1. Approximately 7.5 x 5.8 collection with gas fluid level in the left breast parenchyma consistent with a postoperative seroma or hematoma. The left axillary drainage catheter is removed from the collection. 2. No mass, lymphadenopathy or focal acute infiltrate was identified. The ___ _ structures are unremarkable. The patient was started on antibiotics. PAST MEDICAL HISTORY: Asthma, hyperlipidemia, diabetes mellitus, and of course the cancer of the breast on the left side. Surgery per history of present illness. FAMILY HISTORY: Negative for breast cancer or ovarian cancer. SOCIAL HISTORY: The patient lives at home with the family. MEDICATIONS: Please refer to reconciliation. PHYSICAL EXAMINATION: The patient is alert, awake, oriented x3. VITAL SIGNS: Temperature 98.3, 79 pulse rate, 18 respirations, blood pressure 137/71, saturation 97% on room air. LABS: Today, WBC 8500 with 53% segmented. Chemistry: BUN, creatinine, sodium , potassium normal. Blood sugar 126. GENERAL: Patient is alert, awake, oriented x3, no acute distress. HEENT: Within normal. NECK: Supple. BREASTS: Right side is normal. Left side, there is a Wilmar-Cline drain coming out from the anterior mid axillary line, which is going in the left axilla and draining the axillary cavity area. The suture line is intact. There is no cellulitis. Also, there is a suture line for the partial mastectomy in the parenchyma of the breast which is also intact and there is no evidence of cellulitis, but on pressure around the Wilmar-Cline drain in the axilla, it is painful and tender. The drainage from the Wilmar-Cline tubing is serosanguineous but it does not look like purulence. CHEST: Symmetrical expansion. HEART: Regular rhythm. ABDOMEN: Round and soft, nondistended, nontender. EXTREMITIES: No edema. Laboratory data was mentioned and CT scan report was mentioned. IMPRESSION: 1. Postoperative seroma formation in the parenchyma of the left breast at the site of the partial mastectomy 2. Diabetes mellitus type 2. 3. Asthma by history. 4. Hyperlipidemia. 5. Tenderness around the site of exit of the Wilmar-Cline drain. This could be just local tenderness or mild inflammation over there. PLAN: Continue antibiotics, control the blood sugar, and probably the patient can be discharged within a couple of days after she becomes stable, with oral antibiotic. Dictated By: ELVI HAQ MD PS/DANIELA Conf#: [id number] DID#: [id number] MTDD
[2016-05-17] MEDS: morphine 2 MG INJ IV PRN (08:44)
[2016-05-17] MEDS: LORATADINE 10 MG TAB PO SCH (08:45)
[2016-05-17] MEDS: FENOFIBRATE 145 MG TAB PO SCH (08:45)
[2016-05-17] MEDS: metFORMIN 500 MG TAB PO SCH ×2 (08:45→17:15)
[2016-05-17] MEDS: GABAPENTIN 300 MG CAP PO SCH ×2 (08:45→20:52)
[2016-05-17 08:46] VITALS: BP 142/71; RESP 18
[2016-05-17] MEDS: SALMETEROL/FLUTICASONE 250/50 INHA INH SCH ×2 (08:51→20:52)
[2016-05-17] MEDS: CEFTRIAXONE 1 GM/50 ML (PMX) 50 ML IVPB SCH (08:54)
[2016-05-17] MEDS: VENLAFAXINE 75 MG TABLET PO SCH (10:45)
--- NOTE | 2016-05-17 13:35 | CONS ---
Date/Time of Note Date/Time of Note DATE: 05/17/16 TIME: 13:31 Assessment/Plan Assessment/Plan Chief Complaint/Hosp Course SUBJECTIVE: No acute changes. The patient is alert. Afebrile. Abx: Vancomycin and Rocephin. PHYSICAL EXAMINATION: GENERAL: Obese, well-developed, 55-year-old woman who is alert, in no distress. HEENT: Head atraumatic, normocephalic. Sclerae anicteric. Buccal mucosa pink. NECK: Supple. CHEST: Rise symmetrical. Breath sounds diminished to bases. HEART: S1, S2. ABDOMEN: Soft, bowel tones present. EXTREMITIES: Without cyanosis or edema. ASSESSMENT: 1. Left breast cellulitis, status post partial mastectomy with seroma in the left axilla. 2. Breast cancer. 3. Diabetes. 4. Obesity. PLAN: The patient remains stable. Continue present care, anticipate dc on oral Keflex, f/u surgical recommendations [facility] staff Problems: Consultation Date/Type/Reason Admit Date/Time May 15, 2016 at 01:28 Initial Consult Date Type of Consultation: ID Exam/Review of Systems Vital Signs Vitals Vital Signs Date Time Temp Pulse Resp B/P Pulse Ox O2 Delivery O2 Flow Rate FiO2 05/17/16 08:46 98.2 77 18 142/71 95 05/15/16 01:00 Room Air Intake and Output 05/16/16 05/16/16 05/17/16 15:00 23:00 07:00 Intake Total 50 ml 750 ml Output Total 2 ml Balance 50 ml 748 ml Results Result Diagram: 05/17/16 0435 05/17/16 0435 Results 24 hrs Laboratory Tests Test 05/16/16 20:33 05/17/16 04:35 05/17/16 07:57 05/17/16 11:56 Bedside Glucose 107 124 106 White Blood Count 8.7 Red Blood Count 4.14 L Hemoglobin 12.2 Hematocrit 35.7 L Mean Corpuscular Volume 86.2 Mean Corpuscular Hemoglobin 29.5 Mean Corpuscular Hemoglobin Concent 34.2 Red Cell Distribution Width 14.0 Platelet Count 234 Mean Platelet Volume 10.7 H Neutrophils % 53.5 Lymphocytes % 21.1 Monocytes % 6.2 Eosinophils % 17.7 H Basophils % 0.7 Nucleated Red Blood Cells % 0.0 Neutrophils # 4.6 Lymphocytes # 1.8 Monocytes # 0.5 Eosinophils # 1.5 H Basophils # 0.1 Nucleated Red Blood Cells # 0.0 Sodium Level 138 Potassium Level 3.9 Chloride Level 102 Carbon Dioxide Level 24 Anion Gap 16 Blood Urea Nitrogen 13 Creatinine 0.51 Glucose Level 118 Calcium Level 9.4 Medications Medications Current Medications Acetaminophen (Tylenol Tab) 650 mg Q4H PRN PO PAIN AND OR ELEVATED TEMP; Start 05/15/16 at 04:00 Acetaminophen/ Hydrocodone Bitart ([place] (5/325)) 1 tab Q4H PRN PO MODERATE PAIN LEVEL 4-6; Start 05/15/16 at 04:00 Morphine Sulfate (morphine) 2 mg Q4H PRN IV SEVERE PAIN LEVEL 7-10 Last administered on 05/17/16 08:44; Admin Dose 2 MG; Start 05/15/16 at 04:00 Ondansetron HCl (Zofran Inj) 4 mg Q6H PRN IV NAUSEA AND/OR VOMITING Last administered on 05/16/16 12:59; Admin Dose 4 MG; Start 05/15/16 at 04:00 Diagnostic Test (Pha) (Accu-Chek) If HS dose is administer... 02 XX ; Start at 02:00 Miscellaneous Information 1 ea NOTE XX ; Start 05/15/16 at 04:30 Glucose (Glutose) 15 gm Q15M PRN PO DECREASED GLUCOSE; Start 05/15/16 at 04:30 Glucose (Glutose) 22.5 gm Q15M PRN PO DECREASED GLUCOSE; Start 05/15/16 at 04: 30 Dextrose (D50w Syringe) 25 ml Q15M PRN IV DECREASED GLUCOSE; Start 05/15/16 at 04:30 Dextrose (D50w Syringe) 50 ml Q15M PRN IV DECREASED GLUCOSE; Start 05/15/16 at 04:30 Glucagon (Glucagen) 1 mg Q15M PRN IM DECREASED GLUCOSE; Start 05/15/16 at 04:30 Glucose (Glutose) 15 gm Q15M PRN BUCCAL DECREASED GLUCOSE; Start 05/15/16 at 04 :30 Fenofibrate (Tricor) 145 mg DAILY PO Last administered on 05/17/16 08:45; Admin Dose 145 MG; Start 05/16/16 at 09:00 Gabapentin (Neurontin) 300 mg BID PO Last administered on 05/17/16 08:45; Admin Dose 300 MG; Start 05/15/16 at 11:00 Loratadine (Claritin) 10 mg DAILY PO Last administered on 05/17/16 08:45; Admin Dose 10 MG; Start 05/16/16 at 09:00 Montelukast Sodium (Singulair) 10 mg HS PO Last administered on 05/16/16 20:35 ; Admin Dose 10 MG; Start 05/15/16 at 21:00 Venlafaxine HCl (Effexor) 75 mg DAILY PO Last administered on 05/17/16 10:45; Admin Dose 75 MG; Start 05/16/16 at 09:00 Salmeterol Xinafoate/ Fluticasone 1 inh 1 inh BID INH Last administered on 05/17 08:51; Admin Dose 1 INH; Start 05/15/16 at 12:00 Ceftriaxone Sodium 50 ml @ 100 mls/hr DAILY IVPB Last administered on 08:54; Admin Dose 100 MLS/HR; Start 05/16/16 at 09:00; Stop 05/24/16 at 12: 00 Vancomycin HCl/ Sodium Chloride (Vancocin/NS) 250 ml @ 83.333 mls/ hr Q12H IVPB Last administered on 05/17/16 00:36; Admin Dose 83.333 MLS/HR; Start at 01:00 NIR PANDA NP May 17, 2016 13:35
[2016-05-17] MEDS: ONDANSETRON 4 MG INJ IV PRN (13:45)
[2016-05-17] MEDS: DOCUSATE SODIUM 100 MG CAP PO SCH (17:15)
[2016-05-17] MEDS: HYDROCODONE/APAP (5/325) TAB PO PRN (17:15)
--- NOTE | 2016-05-17 19:08 | PN ---
Date/Time of Note Date/Time of Note DATE: 05/17/16 TIME: 19:05 Assessment/Plan VTE Prophylaxis VTE Prophylaxis Intervention: SCD's Lines/Catheters IV Catheter Type (from Nrs): [place] Assessment/Plan Chief Complaint/Hosp Course ASSESSMENT AND PLAN: 1. Postoperative seroma versus hematoma, rule out possible abscess, continue broad spectrum antibiotics. Dr. Desir is following the patient in general surgery consultation. Continue [place] and morphine for pain and Zofran p.r.n. for nausea. Dr. Mei is following in infection disease consultation. Continue IV antibiotics per ID. 2. Diabetes mellitus type 2. Continue metformin and NovoLog per moderate algorithm sliding scale. 3. Asthma by history. Continue Advair and DuoNeb. 4. Hyperlipidemia. Continue Tricor. Continue Lovenox for deep venous thrombosis prophylaxis and Pepcid for peptic ulcer disease prophylaxis. Further recommendations based on clinical course. Plan of care discussed with Dr. Prakash. Problems: Subjective 24 Hr Interval Summary Free Text/Dictation Patient still complains of significant amount of pain requiring IV morphine, denies any fever chills. Exam/Review of Systems Vital Signs Vitals Vital Signs Date Time Temp Pulse Resp B/P Pulse Ox O2 Delivery O2 Flow Rate FiO2 05/17/16 08:46 98.2 77 18 142/71 95 05/15/16 01:00 Room Air Intake and Output 05/16/16 05/16/16 05/17/16 15:00 23:00 07:00 Intake Total 50 ml 750 ml Output Total 2 ml Balance 50 ml 748 ml Exam PHYSICAL ASSESSMENT GENERAL: Well-developed, obese female currently is awake, alert. HEENT: Head is atraumatic, normocephalic. PERRLA. NECK: Supple, no cervical lymphadenopathy, no thyromegaly. BREAST: The patient with left breast with surgical incision which is intact. There is no erythema; however, there is tenderness on palpation at the breast site and axillary site. The patient has a left axillary SCOTT. CHEST: There are no rhonchi, wheezes, rales noted. CARDIOVASCULAR: Normal S1, S2. No murmurs, gallops, clicks, rubs noted. ABDOMEN: Round, soft, nondistended, nontender. Bowel sounds present. No guarding. EXTREMITIES: No edema, clubbing, cyanosis. Pulses equal bilaterally 2+. SKIN: No rash, petechiae noted. NEUROLOGIC: The patient is awake, alert and oriented x4 Results Result Diagram: 05/17/16 0435 05/17/16 0435 Results 24 hrs Laboratory Tests Test 05/16/16 20:33 05/17/16 04:35 05/17/16 07:57 05/17/16 11:56 Bedside Glucose 107 124 106 White Blood Count 8.7 Red Blood Count 4.14 L Hemoglobin 12.2 Hematocrit 35.7 L Mean Corpuscular Volume 86.2 Mean Corpuscular Hemoglobin 29.5 Mean Corpuscular Hemoglobin Concent 34.2 Red Cell Distribution Width 14.0 Platelet Count 234 Mean Platelet Volume 10.7 H Neutrophils % 53.5 Lymphocytes % 21.1 Monocytes % 6.2 Eosinophils % 17.7 H Basophils % 0.7 Nucleated Red Blood Cells % 0.0 Neutrophils # 4.6 Lymphocytes # 1.8 Monocytes # 0.5 Eosinophils # 1.5 H Basophils # 0.1 Nucleated Red Blood Cells # 0.0 Sodium Level 138 Potassium Level 3.9 Chloride Level 102 Carbon Dioxide Level 24 Anion Gap 16 Blood Urea Nitrogen 13 Creatinine 0.51 Glucose Level 118 Calcium Level 9.4 Test 05/17/16 16:51 Bedside Glucose 113 Medications Medications Current Medications Acetaminophen (Tylenol Tab) 650 mg Q4H PRN PO PAIN AND OR ELEVATED TEMP; Start 05/15/16 at 04:00 Acetaminophen/ Hydrocodone Bitart ([place] (5/325)) 1 tab Q4H PRN PO MODERATE PAIN LEVEL 4-6 Last administered on 05/17/16 17:15; Admin Dose 1 TAB; Start at 04:00 Morphine Sulfate (morphine) 2 mg Q4H PRN IV SEVERE PAIN LEVEL 7-10 Last administered on 05/17/16 08:44; Admin Dose 2 MG; Start 05/15/16 at 04:00 Ondansetron HCl (Zofran Inj) 4 mg Q6H PRN IV NAUSEA AND/OR VOMITING Last administered on 05/17/16 13:45; Admin Dose 4 MG; Start 05/15/16 at 04:00 Diagnostic Test (Pha) (Accu-Chek) If HS dose is administer... 02 XX ; Start at 02:00 Miscellaneous Information 1 ea NOTE XX ; Start 05/15/16 at 04:30 Glucose (Glutose) 15 gm Q15M PRN PO DECREASED GLUCOSE; Start 05/15/16 at 04:30 Glucose (Glutose) 22.5 gm Q15M PRN PO DECREASED GLUCOSE; Start 05/15/16 at 04: 30 Dextrose (D50w Syringe) 25 ml Q15M PRN IV DECREASED GLUCOSE; Start 05/15/16 at 04:30 Dextrose (D50w Syringe) 50 ml Q15M PRN IV DECREASED GLUCOSE; Start 05/15/16 at 04:30 Glucagon (Glucagen) 1 mg Q15M PRN IM DECREASED GLUCOSE; Start 05/15/16 at 04:30 Glucose (Glutose) 15 gm Q15M PRN BUCCAL DECREASED GLUCOSE; Start 05/15/16 at 04 :30 Fenofibrate (Tricor) 145 mg DAILY PO Last administered on 05/17/16 08:45; Admin Dose 145 MG; Start 05/16/16 at 09:00 Gabapentin (Neurontin) 300 mg BID PO Last administered on 05/17/16 08:45; Admin Dose 300 MG; Start 05/15/16 at 11:00 Loratadine (Claritin) 10 mg DAILY PO Last administered on 05/17/16 08:45; Admin Dose 10 MG; Start 05/16/16 at 09:00 Montelukast Sodium (Singulair) 10 mg HS PO Last administered on 05/16/16 20:35 ; Admin Dose 10 MG; Start 05/15/16 at 21:00 Venlafaxine HCl (Effexor) 75 mg DAILY PO Last administered on 05/17/16 10:45; Admin Dose 75 MG; Start 05/16/16 at 09:00 Salmeterol Xinafoate/ Fluticasone 1 inh 1 inh BID INH Last administered on 05/17 08:51; Admin Dose 1 INH; Start 05/15/16 at 12:00 Ceftriaxone Sodium 50 ml @ 100 mls/hr DAILY IVPB Last administered on 08:54; Admin Dose 100 MLS/HR; Start 05/16/16 at 09:00; Stop 05/24/16 at 12: 00 Vancomycin HCl/ Sodium Chloride (Vancocin/NS) 250 ml @ 83.333 mls/ hr Q12H IVPB Last administered on 05/17/16 13:45; Admin Dose 83.333 MLS/HR; Start at 01:00 Docusate Sodium (Colace) 100 mg DAILY PO Last administered on 05/17/16 17:15; Admin Dose 100 MG; Start 05/17/16 at 17:00 Polyethylene Glycol (Miralax) 17 gm DAILY PO ; Start 05/18/16 at 09:00 MAURO ORTEZ May 17, 2016 19:08
[2016-05-17 19:30] VITALS: BP 144/68; RESP 16
[2016-05-17] MEDS: MONTELUKAST 10 MG TAB PO SCH (20:52)
[2016-05-18] MEDS: VANCOMYCIN 1.25 GM in SOD CHLORIDE 0.9% 250 ML IVPB SCH ×2 (01:51→12:26)
[2016-05-18] MEDS: ACCU-CHEK XX SCH (02:00)
[2016-05-18 06:05] LABS: ADD SCAN DIFF NO
[2016-05-18 06:13] LABS: POTASSIUM 3.6 mmol/L (3.5-5.1)
[2016-05-18 06:15] LABS: CREATININE 0.53 mg/dl (0.44-1.00)
[2016-05-18 06:16] LABS: BASOPHILS % 0.5 % (0.0-2.0); CALCIUM 9.2 mg/dl (8.4-10.2); EOSINOPHILS # 1.3 10^3/ul (0.0-0.5); EOSINOPHILS % 16.8 % (0.0-7.0); HEMATOCRIT 34.8 % (37.0-47.0); LYMPHOCYTES # 1.8 10^3/ul (0.8-2.9); LYMPHOCYTES % 22.5 % (15.0-51.0); MEAN CORPUSCULAR HEMOGLOBIN 29.9 pg (29.0-33.0); MEAN CORPUSCULAR HGB CONC 34.5 g/dl (32.0-37.0); MEAN CORPUSCULAR VOLUME 86.6 fl (82.0-101.0); MEAN PLATELET VOLUME 10.4 fl (7.4-10.4); MONOCYTE # 0.5 10^3/ul (0.3-0.9); MONOCYTES % 6.8 % (0.0-11.0); NEUTROPHIL # 4.1 10^3/ul (1.6-7.5); NEUTROPHILS % 52.8 % (39.0-77.0); PLATELET COUNT 224 10^3/UL (140-415); RED BLOOD COUNT 4.02 10^6/ul (4.20-5.40); RED CELL DISTRIBUTION WIDTH 13.7 % (11.5-14.5); WHITE BLOOD COUNT 7.8 10^3/ul (4.8-10.8)
[2016-05-18 08:00] VITALS: BP 140/68; RESP 16
[2016-05-18] MEDS: metFORMIN 500 MG TAB PO SCH ×2 (08:27→17:47)
[2016-05-18] MEDS: DOCUSATE SODIUM 100 MG CAP PO SCH (08:27)
[2016-05-18] MEDS: FENOFIBRATE 145 MG TAB PO SCH (08:27)
[2016-05-18] MEDS: SALMETEROL/FLUTICASONE 250/50 INHA INH SCH ×2 (08:27→20:25)
[2016-05-18] MEDS: GABAPENTIN 300 MG CAP PO SCH ×2 (08:28→20:25)
[2016-05-18] MEDS: HYDROCODONE/APAP (5/325) TAB PO PRN ×2 (08:28→12:28)
[2016-05-18] MEDS: CEFTRIAXONE 1 GM/50 ML (PMX) 50 ML IVPB SCH (08:28)
[2016-05-18] MEDS: LORATADINE 10 MG TAB PO SCH (08:34)
[2016-05-18] MEDS: VENLAFAXINE 75 MG TABLET PO SCH (08:34)
[2016-05-18] MEDS: POLYETHYLENE GLYCOL 17 GM PACKET PO SCH (08:34)
[2016-05-18] MEDS: INSULIN ASPART [NOVOLOG] 3 ML PEN SC SCH ×4 (08:41→20:31)
[2016-05-18] MEDS: ONDANSETRON 4 MG INJ IV PRN ×2 (12:27→20:24)
--- NOTE | 2016-05-18 13:58 | PN ---
Date/Time of Note Date/Time of Note DATE: 05/18/16 TIME: 13:55 Assessment/Plan VTE Prophylaxis VTE Prophylaxis Intervention: other Lines/Catheters IV Catheter Type (from Nrsg): Saline Lock Assessment/Plan Assessment/Plan 1. Postoperative seroma versus hematoma, rule out possible abscess, continue broad spectrum antibiotics. Dr. Desir is following the patient in general surgery consultation. Continue [place] and morphine for pain and Zofran p.r.n. for nausea. Dr. Mei is following in infection disease consultation. Continue IV antibiotics per ID. 2. Diabetes mellitus type 2. Continue metformin and NovoLog per moderate algorithm sliding scale. 3. Asthma by history. Continue Advair and DuoNeb. 4. Hyperlipidemia. Continue Tricor. Continue Lovenox for deep venous thrombosis prophylaxis and Pepcid for peptic ulcer disease prophylaxis. Further recommendations based on clinical course. Plan of care discussed with Dr. Prakash. Subjective 24 Hr Interval Summary Constitutional: other (left breast pain) Eyes: no complaints ENT: no complaints Respiratory: no complaints Gastrointestinal: no complaints Genitourinary: no complaints Musculoskeletal: no complaints Skin: no complaints Endocrine: no complaints Lymphatic: no complaints Psychological: no complaints Immunologic: no complaints Exam/Review of Systems Vital Signs Vitals Vital Signs Date Time Temp Pulse Resp B/P Pulse Ox O2 Delivery O2 Flow Rate FiO2 05/18/16 08:00 98.1 81 16 140/68 93 05/15/16 01:00 Room Air Intake and Output 05/17/16 05/17/16 05/18/16 15:00 23:00 07:00 Intake Total 50 ml 770 ml 650 ml Output Total 1850 ml 605 ml Balance 50 ml -1080 ml 45 ml Exam Constitutional: alert, oriented, well developed Psych: nl mood/affect Head: atraumatic Eyes: EOMI, PERRL, nl sclera ENMT: nl external ears & nose Neck: non-tender Respiratory: clear to auscultation Cardiovascular: regular rate and rhythm Gastrointestinal: nl liver, spleen, soft Musculoskeletal: nl extremities to inspection Extremities: normal pulses Neurological: nl mental status, nl speech Skin: other Lymph: nontender Results Result Diagram: 05/18/16 0520 05/18/16 0520 Results 24 hrs Laboratory Tests Test 05/17/16 16:51 05/17/16 20:53 05/18/16 05:20 05/18/16 07:46 Bedside Glucose 113 145 142 White Blood Count 7.8 Red Blood Count 4.02 L Hemoglobin 12.0 Hematocrit 34.8 L Mean Corpuscular Volume 86.6 Mean Corpuscular Hemoglobin 29.9 Mean Corpuscular Hemoglobin Concent 34.5 Red Cell Distribution Width 13.7 Platelet Count 224 Mean Platelet Volume 10.4 Neutrophils % 52.8 Lymphocytes % 22.5 Monocytes % 6.8 Eosinophils % 16.8 H Basophils % 0.5 Nucleated Red Blood Cells % 0.0 Neutrophils # 4.1 Lymphocytes # 1.8 Monocytes # 0.5 Eosinophils # 1.3 H Basophils # 0.0 Nucleated Red Blood Cells # 0.0 Sodium Level 141 Potassium Level 3.6 Chloride Level 102 Carbon Dioxide Level 28 Anion Gap 15 Blood Urea Nitrogen 14 Creatinine 0.53 Glucose Level 110 Calcium Level 9.2 Test 05/18/16 11:41 Bedside Glucose 118 Medications Medications Current Medications Acetaminophen (Tylenol Tab) 650 mg Q4H PRN PO PAIN AND OR ELEVATED TEMP; Start 05/15/16 at 04:00 Acetaminophen/ Hydrocodone Bitart ([place] (5/325)) 1 tab Q4H PRN PO MODERATE PAIN LEVEL 4-6 Last administered on 05/18/16 12:28; Admin Dose 1 TAB; Start at 04:00 Morphine Sulfate (morphine) 2 mg Q4H PRN IV SEVERE PAIN LEVEL 7-10 Last administered on 05/17/16 08:44; Admin Dose 2 MG; Start 05/15/16 at 04:00 Ondansetron HCl (Zofran Inj) 4 mg Q6H PRN IV NAUSEA AND/OR VOMITING Last administered on 05/18/16 12:27; Admin Dose 4 MG; Start 05/15/16 at 04:00 Diagnostic Test (Pha) (Accu-Chek) If HS dose is administer... 02 XX ; Start at 02:00 Miscellaneous Information 1 ea NOTE XX ; Start 05/15/16 at 04:30 Glucose (Glutose) 15 gm Q15M PRN PO DECREASED GLUCOSE; Start 05/15/16 at 04:30 Glucose (Glutose) 22.5 gm Q15M PRN PO DECREASED GLUCOSE; Start 05/15/16 at 04: 30 Dextrose (D50w Syringe) 25 ml Q15M PRN IV DECREASED GLUCOSE; Start 05/15/16 at 04:30 Dextrose (D50w Syringe) 50 ml Q15M PRN IV DECREASED GLUCOSE; Start 05/15/16 at 04:30 Glucagon (Glucagen) 1 mg Q15M PRN IM DECREASED GLUCOSE; Start 05/15/16 at 04:30 Glucose (Glutose) 15 gm Q15M PRN BUCCAL DECREASED GLUCOSE; Start 05/15/16 at 04 :30 Fenofibrate (Tricor) 145 mg DAILY PO Last administered on 05/18/16 08:27; Admin Dose 145 MG; Start 05/16/16 at 09:00 Gabapentin (Neurontin) 300 mg BID PO Last administered on 05/18/16 08:28; Admin Dose 300 MG; Start 05/15/16 at 11:00 Loratadine (Claritin) 10 mg DAILY PO Last administered on 05/18/16 08:34; Admin Dose 10 MG; Start 05/16/16 at 09:00 Montelukast Sodium (Singulair) 10 mg HS PO Last administered on 05/17/16 20:52 ; Admin Dose 10 MG; Start 05/15/16 at 21:00 Venlafaxine HCl (Effexor) 75 mg DAILY PO Last administered on 05/18/16 08:34; Admin Dose 75 MG; Start 05/16/16 at 09:00 Salmeterol Xinafoate/ Fluticasone 1 inh 1 inh BID INH Last administered on 05/18 08:27; Admin Dose 1 INH; Start 05/15/16 at 12:00 Ceftriaxone Sodium 50 ml @ 100 mls/hr DAILY IVPB Last administered on 08:28; Admin Dose 100 MLS/HR; Start 05/16/16 at 09:00; Stop 05/24/16 at 12: 00 Vancomycin HCl/ Sodium Chloride (Vancocin/NS) 250 ml @ 83.333 mls/ hr Q12H IVPB Last administered on 05/18/16 12:26; Admin Dose 83.333 MLS/HR; Start at 01:00 Docusate Sodium (Colace) 100 mg DAILY PO Last administered on 05/18/16 08:27; Admin Dose 100 MG; Start 3/29/17 at 17:00 Polyethylene Glycol (Miralax) 17 gm DAILY PO Last administered on 05/18/16t 08: 34; Admin Dose 17 GM; Start 05/18/16 at 09:00 Miscellaneous Information (*Rx Drug Level Order Reminder*) VANCO TROUGH @ 0, 000 ON... ONCE ONCE XX ; Start 05/19/16 at 00:00; Stop 05/19/16 at 00:01 SEEMA JACOME May 18, 2016 13:58
--- NOTE | 2016-05-18 14:25 | PN ---
DATE: 05/18/2016 SUBJECTIVE: Complains of pain in the left axillary area, left breast, left chest wall and a lot of nausea. Has not had any bowel movement for 2 days. OBJECTIVE: VITAL SIGNS: Temperature 98.1, heart rate 81, respirations 16, blood pressure 140/68, saturation 93 % on room air. LABORATORY DATA: WBC 7800 with 52% segmented, normal. Hemoglobin 12, hematocrit 34.8. Chemistry: Sodium 141, potassium 3.6, BUN 14, creatinine 0.96, blood sugar POC recorded 118 ASSESSMENT: A 55-year-old female with advanced cancer of left breast, who underwent partial mastec romeo with axillary dissection and then the patient started having pain in the axillary area wa s referred to emergency room with the impression of infection post-mastectomy. Patient was admitted . I saw the patient in consultation 2 days later. Grossly there was no evidence of cellulitis. Th e Wilmar-Cline drain was draining about 10 mL which was not purulent. The patient did not have reymundo kocytosis or fever. In any case, the patient has been started on antibiotics and today the incision lines both are clean and clear. There is no cellulitis. The drain has been draining less than 5 m L serosanguineous fluid, so I removed the Wilmar-Cline drain from the left axillary area. The gracia ent is complaining of nausea. I am not sure what is the cause of nausea. Actually, 2 days ago she vomited, so the medical service to evaluate the patient from this point of view. BUN and creatinine as mentioned are normal. Sodium and potassium are normal. Leukocyte is normal. Temperature is no rmal. The patient is on vancomycin and ceftriaxone. PLAN: Continue current care. We will see what happens to the pain after removal of the Wilmar-Pra tt drain. Dictated By: ELVI MONACO/DANIELA Conf#: [id number] DID#: [id number]
--- NOTE | 2016-05-18 15:57 | CONS ---
Date/Time of Note Date/Time of Note DATE: 05/18/16 TIME: 15:56 Assessment/Plan Assessment/Plan Chief Complaint/Hosp Course SUBJECTIVE: No acute changes. The patient is alert. Afebrile. Abx: Vancomycin and Rocephin. PHYSICAL EXAMINATION: GENERAL: Obese, well-developed, 55-year-old woman who is alert, in no distress. HEENT: Head atraumatic, normocephalic. Sclerae anicteric. Buccal mucosa pink. NECK: Supple. CHEST: Rise symmetrical. Breath sounds diminished to bases. HEART: S1, S2. ABDOMEN: Soft, bowel tones present. EXTREMITIES: Without cyanosis or edema. ASSESSMENT: 1. Left breast cellulitis, status post partial mastectomy with seroma in the left axilla. 2. Breast cancer. 3. Diabetes. 4. Obesity. PLAN: The patient remains stable. Continue present care, anticipate dc on oral Keflex, f/u surgical recommendations [facility] staff Problems: Consultation Date/Type/Reason Admit Date/Time May 15, 2016 at 01:28 Type of Consultation: ID Exam/Review of Systems Vital Signs Vitals Vital Signs Date Time Temp Pulse Resp B/P Pulse Ox O2 Delivery O2 Flow Rate FiO2 05/18/16 08:00 98.1 81 16 140/68 93 05/15/16 01:00 Room Air Intake and Output 05/17/16 05/17/16 05/18/16 15:00 23:00 07:00 Intake Total 50 ml 770 ml 650 ml Output Total 1850 ml 605 ml Balance 50 ml -1080 ml 45 ml Results Result Diagram: 05/18/16 0520 05/18/16 0520 Results 24 hrs Laboratory Tests Test 05/17/16 16:51 05/17/16 20:53 05/18/16 05:20 05/18/16 07:46 Bedside Glucose 113 145 142 White Blood Count 7.8 Red Blood Count 4.02 L Hemoglobin 12.0 Hematocrit 34.8 L Mean Corpuscular Volume 86.6 Mean Corpuscular Hemoglobin 29.9 Mean Corpuscular Hemoglobin Concent 34.5 Red Cell Distribution Width 13.7 Platelet Count 224 Mean Platelet Volume 10.4 Neutrophils % 52.8 Lymphocytes % 22.5 Monocytes % 6.8 Eosinophils % 16.8 H Basophils % 0.5 Nucleated Red Blood Cells % 0.0 Neutrophils # 4.1 Lymphocytes # 1.8 Monocytes # 0.5 Eosinophils # 1.3 H Basophils # 0.0 Nucleated Red Blood Cells # 0.0 Sodium Level 141 Potassium Level 3.6 Chloride Level 102 Carbon Dioxide Level 28 Anion Gap 15 Blood Urea Nitrogen 14 Creatinine 0.53 Glucose Level 110 Calcium Level 9.2 Test 05/18/16 11:41 Bedside Glucose 118 Medications Medications Current Medications Acetaminophen (Tylenol Tab) 650 mg Q4H PRN PO PAIN AND OR ELEVATED TEMP; Start 05/15/16 at 04:00 Acetaminophen/ Hydrocodone Bitart ([place] (5/325)) 1 tab Q4H PRN PO MODERATE PAIN LEVEL 4-6 Last administered on 05/18/16 12:28; Admin Dose 1 TAB; Start at 04:00 Morphine Sulfate (morphine) 2 mg Q4H PRN IV SEVERE PAIN LEVEL 7-10 Last administered on 05/17/16 08:44; Admin Dose 2 MG; Start 05/15/16 at 04:00 Ondansetron HCl (Zofran Inj) 4 mg Q6H PRN IV NAUSEA AND/OR VOMITING Last administered on 05/18/16 12:27; Admin Dose 4 MG; Start 05/15/16 at 04:00 Diagnostic Test (Pha) (Accu-Chek) If HS dose is administer... 02 XX ; Start at 02:00 Miscellaneous Information 1 ea NOTE XX ; Start 05/15/16 at 04:30 Glucose (Glutose) 15 gm Q15M PRN PO DECREASED GLUCOSE; Start 05/15/16 at 04:30 Glucose (Glutose) 22.5 gm Q15M PRN PO DECREASED GLUCOSE; Start 05/15/16 at 04: 30 Dextrose (D50w Syringe) 25 ml Q15M PRN IV DECREASED GLUCOSE; Start 05/15/16 at 04:30 Dextrose (D50w Syringe) 50 ml Q15M PRN IV DECREASED GLUCOSE; Start 05/15/16 at 04:30 Glucagon (Glucagen) 1 mg Q15M PRN IM DECREASED GLUCOSE; Start 05/15/16 at 04:30 Glucose (Glutose) 15 gm Q15M PRN BUCCAL DECREASED GLUCOSE; Start 05/15/16 at 04 :30 Fenofibrate (Tricor) 145 mg DAILY PO Last administered on 05/18/16 08:27; Admin Dose 145 MG; Start 05/16/16 at 09:00 Gabapentin (Neurontin) 300 mg BID PO Last administered on 05/18/16 08:28; Admin Dose 300 MG; Start 05/15/16 at 11:00 Loratadine (Claritin) 10 mg DAILY PO Last administered on 05/18/16 08:34; Admin Dose 10 MG; Start 05/16/16 at 09:00 Montelukast Sodium (Singulair) 10 mg HS PO Last administered on 05/17/16 20:52 ; Admin Dose 10 MG; Start 05/15/16 at 21:00 Venlafaxine HCl (Effexor) 75 mg DAILY PO Last administered on 05/18/16 08:34; Admin Dose 75 MG; Start 05/16/16 at 09:00 Salmeterol Xinafoate/ Fluticasone 1 inh 1 inh BID INH Last administered on 05/18 08:27; Admin Dose 1 INH; Start 05/15/16 at 12:00 Ceftriaxone Sodium 50 ml @ 100 mls/hr DAILY IVPB Last administered on 08:28; Admin Dose 100 MLS/HR; Start 05/16/16 at 09:00; Stop 05/24/16 at 12: 00 Vancomycin HCl/ Sodium Chloride (Vancocin/NS) 250 ml @ 83.333 mls/ hr Q12H IVPB Last administered on 05/18/16 12:26; Admin Dose 83.333 MLS/HR; Start at 01:00 Docusate Sodium (Colace) 100 mg DAILY PO Last administered on 05/18/16 08:27; Admin Dose 100 MG; Start 05/17/16 at 17:00 Polyethylene Glycol (Miralax) 17 gm DAILY PO Last administered on 05/18/16 08: 34; Admin Dose 17 GM; Start 05/18/16 at 09:00 Miscellaneous Information (*Rx Drug Level Order Reminder*) VANCO TROUGH @ 0, 000 ON... ONCE ONCE XX ; Start 05/19/16 at 00:00; Stop 05/19/16 at 00:01 NIR PANDA NP May 18, 2016 15:57
[2016-05-18] MEDS ORDERED: MAGNESIUM HYDROXIDE 30ML CUP PO ONE (19:30)
[2016-05-18] MEDS: MONTELUKAST 10 MG TAB PO SCH (20:25)
[2016-05-18 20:47] VITALS: BP 132/66; RESP 17
[2016-05-19] MEDS: VANCOMYCIN 1.25 GM in SOD CHLORIDE 0.9% 250 ML IVPB SCH (01:36)
[2016-05-19] MEDS: ACCU-CHEK XX SCH (01:37)
[2016-05-19 05:11] LABS: ADD SCAN DIFF NO
[2016-05-19 05:28] LABS: BASOPHILS % 0.4 % (0.0-2.0); EOSINOPHILS # 1.4 10^3/ul (0.0-0.5); EOSINOPHILS % 17.4 % (0.0-7.0); HEMATOCRIT 36.4 % (37.0-47.0); HEMOGLOBIN 12.2 g/dl (12.0-16.0); LYMPHOCYTES # 1.9 10^3/ul (0.8-2.9); LYMPHOCYTES % 23.5 % (15.0-51.0); MEAN CORPUSCULAR HEMOGLOBIN 29.3 pg (29.0-33.0); MEAN CORPUSCULAR HGB CONC 33.5 g/dl (32.0-37.0); MEAN CORPUSCULAR VOLUME 87.5 fl (82.0-101.0); MEAN PLATELET VOLUME 11.2 fl (7.4-10.4); MONOCYTE # 0.6 10^3/ul (0.3-0.9); MONOCYTES % 6.9 % (0.0-11.0); NEUTROPHIL # 4.1 10^3/ul (1.6-7.5); NEUTROPHILS % 51.2 % (39.0-77.0); PLATELET COUNT 273 10^3/UL (140-415); RED BLOOD COUNT 4.16 10^6/ul (4.20-5.40); RED CELL DISTRIBUTION WIDTH 14.3 % (11.5-14.5)
[2016-05-19 05:39] LABS: POTASSIUM 5.1 mmol/L (3.5-5.1)
[2016-05-19 05:42] LABS: CREATININE 0.54 mg/dl (0.44-1.00)
[2016-05-19 05:43] LABS: CALCIUM 8.9 mg/dl (8.4-10.2)
[2016-05-19 07:10] VITALS: BP 125/66; RESP 16
[2016-05-19] MEDS: INSULIN ASPART [NOVOLOG] 3 ML PEN SC SCH ×4 (07:30→20:48)
[2016-05-19] MEDS: SALMETEROL/FLUTICASONE 250/50 INHA INH SCH ×2 (08:25→20:43)
[2016-05-19] MEDS: GABAPENTIN 300 MG CAP PO SCH ×2 (08:25→20:43)
[2016-05-19] MEDS: VENLAFAXINE 75 MG TABLET PO SCH (08:25)
[2016-05-19] MEDS: metFORMIN 500 MG TAB PO SCH ×2 (08:25→17:44)
[2016-05-19] MEDS: FENOFIBRATE 145 MG TAB PO SCH (08:25)
[2016-05-19] MEDS: LORATADINE 10 MG TAB PO SCH (08:25)
[2016-05-19] MEDS: CEFTRIAXONE 1 GM/50 ML (PMX) 50 ML IVPB SCH (08:26)
[2016-05-19] MEDS: DOCUSATE SODIUM 100 MG CAP PO SCH (08:26)
[2016-05-19] MEDS: POLYETHYLENE GLYCOL 17 GM PACKET PO SCH (08:26)
[2016-05-19] MEDS: HYDROCODONE/APAP (5/325) TAB PO PRN (11:46)
[2016-05-19] MEDS ORDERED: VANCOMYCIN 1.5 GM in SOD CHLORIDE 0.9% 250 ML IVPB SCH (13:00)
--- NOTE | 2016-05-19 15:44 | CONS ---
Date/Time of Note Date/Time of Note DATE: 05/19/16 TIME: 15:42 Assessment/Plan Assessment/Plan Chief Complaint/Hosp Course SUBJECTIVE: No acute changes. No fevers. Abx: Vancomycin and Rocephin. PHYSICAL EXAMINATION: GENERAL: Obese, well-developed, 55-year-old woman who is alert, in no distress. HEENT: Head atraumatic, normocephalic. Sclerae anicteric. Buccal mucosa pink. NECK: Supple. CHEST: Rise symmetrical. Breath sounds diminished to bases. HEART: S1, S2. ABDOMEN: Soft, bowel tones present. EXTREMITIES: Without cyanosis or edema. ASSESSMENT: 1. Left breast cellulitis, status post partial mastectomy with seroma in the left axilla. 2. Breast cancer. 3. Diabetes. 4. Obesity. PLAN: The patient remains stable. Will change abx to PO Keflex, f/u surgical recommendations [facility] staff Problems: Consultation Date/Type/Reason Admit Date/Time May 15, 2016 at 01:28 Type of Consultation: ID Exam/Review of Systems Vital Signs Vitals Vital Signs Date Time Temp Pulse Resp B/P Pulse Ox O2 Delivery O2 Flow Rate FiO2 05/19/16 07:10 98.6 74 16 125/66 92 Intake and Output 05/18/16 05/18/16 05/19/16 15:00 23:00 07:00 Intake Total 50 ml 870 ml 650 ml Output Total 1000 ml Balance 50 ml 870 ml -350 ml Results Result Diagram: 05/19/16 0447 05/19/16 0447 Results 24 hrs Laboratory Tests Test 05/18/16 16:37 05/18/16 20:31 05/19/16 00:05 05/19/16 04:47 Bedside Glucose 109 125 Vancomycin Level Trough 10.2 White Blood Count 8.0 Red Blood Count 4.16 L Hemoglobin 12.2 Hematocrit 36.4 L Mean Corpuscular Volume 87.5 Mean Corpuscular Hemoglobin 29.3 Mean Corpuscular Hemoglobin Concent 33.5 Red Cell Distribution Width 14.3 Platelet Count 273 # Mean Platelet Volume 11.2 H Neutrophils % 51.2 Lymphocytes % 23.5 Monocytes % 6.9 Eosinophils % 17.4 H Basophils % 0.4 Nucleated Red Blood Cells % 0.0 Neutrophils # 4.1 Lymphocytes # 1.9 Monocytes # 0.6 Eosinophils # 1.4 H Basophils # 0.0 Nucleated Red Blood Cells # 0.0 Sodium Level 137 Potassium Level 5.1 Chloride Level 102 Carbon Dioxide Level 26 Anion Gap 14 Blood Urea Nitrogen 11 Creatinine 0.54 Glucose Level 105 Calcium Level 8.9 Test 05/19/16 07:27 05/19/16 11:33 Bedside Glucose 113 110 Medications Medications Current Medications Acetaminophen (Tylenol Tab) 650 mg Q4H PRN PO PAIN AND OR ELEVATED TEMP; Start 05/15/16 at 04:00 Acetaminophen/ Hydrocodone Bitart ([place] (5/325)) 1 tab Q4H PRN PO MODERATE PAIN LEVEL 4-6 Last administered on 05/19/16 11:46; Admin Dose 1 TAB; Start at 04:00 Morphine Sulfate (morphine) 2 mg Q4H PRN IV SEVERE PAIN LEVEL 7-10 Last administered on 05/17/16 08:44; Admin Dose 2 MG; Start 05/15/16 at 04:00 Ondansetron HCl (Zofran Inj) 4 mg Q6H PRN IV NAUSEA AND/OR VOMITING Last administered on 05/18/16 20:24; Admin Dose 4 MG; Start 05/15/16 at 04:00 Diagnostic Test (Pha) (Accu-Chek) If HS dose is administer... 02 XX ; Start at 02:00 Miscellaneous Information 1 ea NOTE XX ; Start 05/15/16 at 04:30 Glucose (Glutose) 15 gm Q15M PRN PO DECREASED GLUCOSE; Start 05/15/16 at 04:30 Glucose (Glutose) 22.5 gm Q15M PRN PO DECREASED GLUCOSE; Start 05/15/16 at 04: 30 Dextrose (D50w Syringe) 25 ml Q15M PRN IV DECREASED GLUCOSE; Start 05/15/16 at 04:30 Dextrose (D50w Syringe) 50 ml Q15M PRN IV DECREASED GLUCOSE; Start 05/15/16 at 04:30 Glucagon (Glucagen) 1 mg Q15M PRN IM DECREASED GLUCOSE; Start 05/15/16 at 04:30 Glucose (Glutose) 15 gm Q15M PRN BUCCAL DECREASED GLUCOSE; Start 05/15/16 at 04 :30 Fenofibrate (Tricor) 145 mg DAILY PO Last administered on 05/19/16 08:25; Admin Dose 145 MG; Start 05/16/16 at 09:00 Gabapentin (Neurontin) 300 mg BID PO Last administered on 05/19/16 08:25; Admin Dose 300 MG; Start 05/15/16 at 11:00 Loratadine (Claritin) 10 mg DAILY PO Last administered on 05/19/16 08:25; Admin Dose 10 MG; Start 05/16/16 at 09:00 Montelukast Sodium (Singulair) 10 mg HS PO Last administered on 05/18/16 20:25 ; Admin Dose 10 MG; Start 05/15/16 at 21:00 Venlafaxine HCl (Effexor) 75 mg DAILY PO Last administered on 05/19/16 08:25; Admin Dose 75 MG; Start 05/16/16 at 09:00 Salmeterol Xinafoate/ Fluticasone 1 inh 1 inh BID INH Last administered on 05/19 08:25; Admin Dose 1 INH; Start 05/15/16 at 12:00 Ceftriaxone Sodium (Rocephin) 50 ml @ 100 mls/hr DAILY IVPB Last administered on 05/19/16 08:26; Admin Dose 100 MLS/HR; Start 05/16/16 at 09:00; Stop at 12:00 Docusate Sodium (Colace) 100 mg DAILY PO Last administered on 05/19/16 08:26; Admin Dose 100 MG; Start 05/17/16 at 17:00 Polyethylene Glycol 17 gm 17 gm DAILY PO Last administered on 05/19/16 08:26; Admin Dose 17 GM; Start 05/18/16 at 09:00 Vancomycin HCl/ Sodium Chloride (Vancocin/NS) 250 ml @ 83.333 mls/ hr Q12H IVPB Last administered on 05/19/16 12:50; Admin Dose 83.333 MLS/HR; Start at 13:00 NIR PANDA NP May 19, 2016 15:43
--- NOTE | 2016-05-19 18:24 | PN ---
Date/Time of Note Date/Time of Note DATE: 05/19/16 TIME: 18:21 Assessment/Plan VTE Prophylaxis VTE Prophylaxis Intervention: SCD's Lines/Catheters IV Catheter Type (from Nrsg): Saline Lock Assessment/Plan Chief Complaint/Hosp Course ASSESSMENT AND PLAN: 1. Postoperative seroma versus hematoma, rule out possible abscess, continue broad spectrum antibiotics. Dr. Desir is following the patient in general surgery consultation. Continue [place] and morphine for pain and Zofran p.r.n. for nausea. Dr. Mei is following in infection disease consultation. Continue antibiotics per ID. 2. Diabetes mellitus type 2. Continue metformin and NovoLog per moderate algorithm sliding scale. 3. Asthma by history. Continue Advair and DuoNeb. 4. Hyperlipidemia. Continue Tricor. Encourage patient to get out of bed, use [place] as needed for pain to prepare patient for discharge, discussed with Dr. Horne, will keep patient overnight today, anticipate discharge home tomorrow if pain is better controlled. Continue Lovenox for deep venous thrombosis prophylaxis and Pepcid for peptic ulcer disease prophylaxis. Further recommendations based on clinical course. Plan of care discussed with Dr. Prakash. Problems: Subjective 24 Hr Interval Summary Free Text/Dictation Patient is still complains of left breast pain requiring IV morphine, remains afebrile, encourage patient to get out of bed. Exam/Review of Systems Vital Signs Vitals Vital Signs Date Time Temp Pulse Resp B/P Pulse Ox O2 Delivery O2 Flow Rate FiO2 05/19/16 07:10 98.6 74 16 125/66 92 Intake and Output 05/18/16 05/18/16 05/19/16 14:59 22:59 06:59 Intake Total 50 ml 870 ml 650 ml Output Total 1000 ml Balance 50 ml 870 ml -350 ml Exam PHYSICAL ASSESSMENT GENERAL: Well-developed, obese female currently is awake, alert. HEENT: Head is atraumatic, normocephalic. PERRLA. NECK: Supple, no cervical lymphadenopathy, no thyromegaly. BREAST: The patient with left breast with surgical incision which is intact. There is no erythema; however, there is tenderness on palpation at the breast site and axillary site. The patient has a left axillary SCOTT. CHEST: There are no rhonchi, wheezes, rales noted. CARDIOVASCULAR: Normal S1, S2. No murmurs, gallops, clicks, rubs noted. ABDOMEN: Round, soft, nondistended, nontender. Bowel sounds present. No guarding. EXTREMITIES: No edema, clubbing, cyanosis. Pulses equal bilaterally 2+. SKIN: No rash, petechiae noted. NEUROLOGIC: The patient is awake, alert and oriented x4 Results Result Diagram: 05/19/16 0447 05/19/16 0447 Results 24 hrs Laboratory Tests Test 05/18/16 20:31 05/19/16 00:05 05/19/16 04:47 05/19/16 07:27 Bedside Glucose 125 113 Vancomycin Level Trough 10.2 White Blood Count 8.0 Red Blood Count 4.16 L Hemoglobin 12.2 Hematocrit 36.4 L Mean Corpuscular Volume 87.5 Mean Corpuscular Hemoglobin 29.3 Mean Corpuscular Hemoglobin Concent 33.5 Red Cell Distribution Width 14.3 Platelet Count 273 # Mean Platelet Volume 11.2 H Neutrophils % 51.2 Lymphocytes % 23.5 Monocytes % 6.9 Eosinophils % 17.4 H Basophils % 0.4 Nucleated Red Blood Cells % 0.0 Neutrophils # 4.1 Lymphocytes # 1.9 Monocytes # 0.6 Eosinophils # 1.4 H Basophils # 0.0 Nucleated Red Blood Cells # 0.0 Sodium Level 137 Potassium Level 5.1 Chloride Level 102 Carbon Dioxide Level 26 Anion Gap 14 Blood Urea Nitrogen 11 Creatinine 0.54 Glucose Level 105 Calcium Level 8.9 Test 05/19/16 11:33 05/19/16 17:22 Bedside Glucose 110 105 Medications Medications Current Medications Acetaminophen (Tylenol Tab) 650 mg Q4H PRN PO PAIN AND OR ELEVATED TEMP; Start 05/15/16 at 04:00 Acetaminophen/ Hydrocodone Bitart ([place] (5/325)) 1 tab Q4H PRN PO MODERATE PAIN LEVEL 4-6 Last administered on 05/19/16 11:46; Admin Dose 1 TAB; Start at 04:00 Morphine Sulfate (morphine) 2 mg Q4H PRN IV SEVERE PAIN LEVEL 7-10 Last administered on 05/17/16 08:44; Admin Dose 2 MG; Start 05/15/16 at 04:00 Ondansetron HCl (Zofran Inj) 4 mg Q6H PRN IV NAUSEA AND/OR VOMITING Last administered on 05/18/16 20:24; Admin Dose 4 MG; Start 05/15/16 at 04:00 Diagnostic Test (Pha) (Accu-Chek) If HS dose is administer... 02 XX ; Start at 02:00 Miscellaneous Information 1 ea NOTE XX ; Start 05/15/16 at 04:30 Glucose (Glutose) 15 gm Q15M PRN PO DECREASED GLUCOSE; Start 05/15/16 at 04:30 Glucose (Glutose) 22.5 gm Q15M PRN PO DECREASED GLUCOSE; Start 05/15/16 at 04: 30 Dextrose (D50w Syringe) 25 ml Q15M PRN IV DECREASED GLUCOSE; Start 05/15/16 at 04:30 Dextrose (D50w Syringe) 50 ml Q15M PRN IV DECREASED GLUCOSE; Start 05/15/16 at 04:30 Glucagon (Glucagen) 1 mg Q15M PRN IM DECREASED GLUCOSE; Start 05/15/16 at 04:30 Glucose (Glutose) 15 gm Q15M PRN BUCCAL DECREASED GLUCOSE; Start 05/15/16 at 04 :30 Fenofibrate (Tricor) 145 mg DAILY PO Last administered on 05/19/16 08:25; Admin Dose 145 MG; Start 05/16/16 at 09:00 Gabapentin (Neurontin) 300 mg BID PO Last administered on 05/19/16 08:25; Admin Dose 300 MG; Start 05/15/16 at 11:00 Loratadine (Claritin) 10 mg DAILY PO Last administered on 05/19/16 08:25; Admin Dose 10 MG; Start 05/16/16 at 09:00 Montelukast Sodium (Singulair) 10 mg HS PO Last administered on 05/18/16 20:25 ; Admin Dose 10 MG; Start 05/15/16 at 21:00 Venlafaxine HCl (Effexor) 75 mg DAILY PO Last administered on 05/19/16 08:25; Admin Dose 75 MG; Start 05/16/16 at 09:00 Salmeterol Xinafoate/ Fluticasone (Advair 250/50 Diskus) 1 inh BID INH Last administered on 05/19/16 08:25; Admin Dose 1 INH; Start 05/15/16 at 12:00 Docusate Sodium (Colace) 100 mg DAILY PO Last administered on 05/19/16 08:26; Admin Dose 100 MG; Start 05/17/16 at 17:00 Polyethylene Glycol (Miralax) 17 gm DAILY PO Last administered on 05/19/16 08: 26; Admin Dose 17 GM; Start 05/18/16 at 09:00 Cephalexin (Keflex) 500 mg Q8 PO ; Start 05/19/16 at 22:00 MAURO ORTEZ May 19, 2016 18:24
[2016-05-19] MEDS ORDERED: HYDROCODONE/APAP (5/325) TAB PO PRN ×2 (18:30)
[2016-05-19] MEDS: MONTELUKAST 10 MG TAB PO SCH (20:44)
[2016-05-19 21:04] VITALS: BP 136/74; RESP 20
[2016-05-19] MEDS: CEPHALEXIN 500 MG CAP PO SCH (21:48)
[2016-05-20] MEDS: ACCU-CHEK XX SCH (02:00)
[2016-05-20] MEDS: CEPHALEXIN 500 MG CAP PO SCH ×2 (05:18→14:39)
[2016-05-20 05:31] LABS: ADD SCAN DIFF NO
[2016-05-20 06:03] LABS: BASOPHILS % 0.4 % (0.0-2.0); EOSINOPHILS # 1.5 10^3/ul (0.0-0.5); HEMATOCRIT 35.8 % (37.0-47.0); LYMPHOCYTES # 1.6 10^3/ul (0.8-2.9); LYMPHOCYTES % 19.3 % (15.0-51.0); MEAN CORPUSCULAR HEMOGLOBIN 29.1 pg (29.0-33.0); MEAN CORPUSCULAR HGB CONC 33.5 g/dl (32.0-37.0); MEAN CORPUSCULAR VOLUME 86.7 fl (82.0-101.0); MEAN PLATELET VOLUME 10.6 fl (7.4-10.4); MONOCYTE # 0.6 10^3/ul (0.3-0.9); MONOCYTES % 7.5 % (0.0-11.0); NEUTROPHIL # 4.6 10^3/ul (1.6-7.5); NEUTROPHILS % 54.7 % (39.0-77.0); PLATELET COUNT 243 10^3/UL (140-415); RED BLOOD COUNT 4.13 10^6/ul (4.20-5.40); WHITE BLOOD COUNT 8.3 10^3/ul (4.8-10.8)
[2016-05-20 06:04] LABS: POTASSIUM 3.6 mmol/L (3.5-5.1)
[2016-05-20 06:07] LABS: CREATININE 0.52 mg/dl (0.44-1.00)
[2016-05-20 06:08] LABS: CALCIUM 9.5 mg/dl (8.4-10.2)
[2016-05-20 06:18] LABS: EOSINOPHILS % 17.7 % (0.0-7.0)
[2016-05-20 07:15] VITALS: BP 133/71; RESP 16
[2016-05-20] MEDS: INSULIN ASPART [NOVOLOG] 3 ML PEN SC SCH ×2 (07:30→11:30)
[2016-05-20] MEDS: metFORMIN 500 MG TAB PO SCH (08:00)
[2016-05-20] MEDS: POLYETHYLENE GLYCOL 17 GM PACKET PO SCH (09:21)
[2016-05-20] MEDS: FENOFIBRATE 145 MG TAB PO SCH (09:22)
[2016-05-20] MEDS: SALMETEROL/FLUTICASONE 250/50 INHA INH SCH (09:22)
[2016-05-20] MEDS: DOCUSATE SODIUM 100 MG CAP PO SCH (09:22)
[2016-05-20] MEDS: VENLAFAXINE 75 MG TABLET PO SCH (09:22)
[2016-05-20] MEDS: GABAPENTIN 300 MG CAP PO SCH (09:22)
[2016-05-20] MEDS: LORATADINE 10 MG TAB PO SCH (09:22)
[2016-05-20] MEDS: ONDANSETRON 4 MG INJ IV PRN (10:52)
--- NOTE | 2016-05-20 13:43 | DS ---
Date/Time of Note Date/Time of Note DATE: 05/20/16 TIME: 13:41 Discharge Summary Admission/Discharge Info Admit Date/Time May 15, 2016 at 01:28 Discharge Date/Time 05/20/16 Final Diagnosis 1) cellulitis 2) breast cancer Consults surgery ID Hospital Course Patient admitted for pain in breast s/p surgery. Patient given antibiotics and pain. Pain is improved and so the patient was felt to be stable for discharge. She will be sent home with pain medication, antibiotics, stool softener, and anti-nausea medication. Patient is to follow up with surgery ASSESSMENT AND PLAN: 1. Postoperative seroma versus hematoma, rule out possible abscess, continue broad spectrum antibiotics. Dr. Desir is following the patient in general surgery consultation. Continue Richmond and morphine for pain and Zofran p.r.n. for nausea. Dr. Mei is following in infection disease consultation. Continue antibiotics per ID. 2. Diabetes mellitus type 2. Continue metformin and NovoLog per moderate algorithm sliding scale. 3. Asthma by history. Continue Advair and DuoNeb. 4. Hyperlipidemia. Continue Tricor. Encourage patient to get out of bed, use Richmond as needed for pain to prepare patient for discharge, discussed with Dr. Horne, will keep patient overnight today, anticipate discharge home tomorrow if pain is better controlled. Continue Lovenox for deep venous thrombosis prophylaxis and Pepcid for peptic ulcer disease prophylaxis. Further recommendations based on clinical course. Plan of care discussed with Dr. Prakash. Home Meds Active Scripts Hydrocodone Bit-Acetaminophen (Hydrocodone Bit-APAP) 5-325MG Tablet, 2 TAB PO Q6H Y for SEVERE PAIN LEVEL 7-10, #30 TAB Prov:CED ORTEZETLANA 05/02/16 Reported Medications Betamet Diprop/Prop Gly (Betamethasone Dp 0.05% Lotion) 60 Ml Lotion, 60 ML TP, BOTTLE 05/01/16 Mometasone-Formoterol (Dulera) 200-5 Mcg/Inh - 13 Gm Hfa.aer.ad, 1 PUFFS INHALATION BID, #1 INHALER 05/01/16 Gabapentin* (Gabapentin*) 300 Mg Capsule, 300 MG PO BID, #60 CAP 05/01/16 Fenofibrate Nanocrystallized* (Fenofibrate*) 145 Mg Tablet, 145 MG PO DAILY, TAB 04/21/15 Montelukast Sodium* (Singulair*) 10 Mg Tablet, 10 MG PO QHS, #30 TAB 04/21/15 Loratadine* (Claritin*) 10 Mg Capsule, 10 MG PO DAILY, CAP 04/21/15 Metformin Hcl* (Metformin Hcl*) 1,000 Mg Tablet, 1000 MG PO BID WITH MEALS, #30 TAB 04/21/15 Venlafaxine Hcl* (Venlafaxine Hcl ER*) 75 Mg Cap.er.24h, 75 MG PO DAILY, CAP 04/21/15 Pending Labs Laboratory Tests Test 05/19/16 17:22 05/19/16 20:37 05/20/16 05:20 05/20/16 07:28 Bedside Glucose 105mg/dL (70-220) 83mg/dL (70-220) 104mg/dL (70-220) White Blood Count 8.310^3/ul (4.8-10.8) Red Blood Count 4.1310^6/ul (4.20-5.40) Hemoglobin 12.0g/dl (12.0-16.0) Hematocrit 35.8% (37.0-47.0) Mean Corpuscular Volume 86.7fl (82.0-101.0) Mean Corpuscular Hemoglobin 29.1pg (29.0-33.0) Mean Corpuscular Hemoglobin Concent 33.5g/dl (32.0-37.0) Red Cell Distribution Width 14.0% (11.5-14.5) Platelet Count 41610^3/UL (140-415) Mean Platelet Volume 10.6fl (7.4-10.4) Neutrophils % 54.7% (39.0-77.0) Lymphocytes % 19.3% (15.0-51.0) Monocytes % 7.5% (0.0-11.0) Eosinophils % 17.7% (0.0-7.0) Basophils % 0.4% (0.0-2.0) Nucleated Red Blood Cells % 0.0/100WBC (0.0-0.0) Neutrophils # 4.610^3/ul (1.6-7.5) Lymphocytes # 1.610^3/ul (0.8-2.9) Monocytes # 0.610^3/ul (0.3-0.9) Eosinophils # 1.510^3/ul (0.0-0.5) Basophils # 0.010^3/ul (0.0-0.1) Nucleated Red Blood Cells # 0.010^3/ul (0.0-0.0) Sodium Level 139mmol/L (135-144) Potassium Level 3.6mmol/L (3.5-5.1) Chloride Level 101mmol/L (97-110) Carbon Dioxide Level 27mmol/L (21-31) Anion Gap 15 (8-16) Blood Urea Nitrogen 11mg/dl (7-20) Creatinine 0.52mg/dl (0.44-1.00) Glucose Level 149mg/dl (70-220) Calcium Level 9.5mg/dl (8.4-10.2) Test 05/20/16 11:40 Bedside Glucose 89mg/dL (70-220) JOSE J TRINH May 20, 2016 13:43
--- NOTE | 2016-05-20 14:59 | PN ---
DATE: 05/20/2016 FOLLOWUP: The patient was admitted because of the left breast pain and the assumption was that she has got infection of the area of the operation. She had partial mastectomy with axillary dissection . She has received a Wilmar-Cline drain in place. Now, today she feels much better. The pain is 4/10. She has had some nausea in the past few days. Bowel movement is okay. I removed the Wilmar- Cline drain 2 days ago. OBJECTIVE VITAL SIGNS: Temperature 98.3, heart rate 74, respirations 16, blood pressure 133/71, saturation 94 % on LABORATORIES: Sodium, potassium normal, BUN and creatinine normal. Blood sugar 89. Hematology: WB C 8300 with 54% neutrophils, hemoglobin 12, hematocrit 35.8. All through the hospital course has be en normal. ASSESSMENT AND PLAN: A 55-year-old female status post left partial mastectomy with axillary dissect ion. She came to the hospital emergency room because of too much pain ____after 2 to 3 weeks postop and she was admitted. At that time, she denied fever or leukocytosis, but the assumption was that she has some infection. Antibiotic was given IV. The patient was seen in consultation by me for Dr Sarah Desir. There was no evidence of gross infection and she received antibiotics for 5 days. At this time, there is no evidence of infection. Wilmar-Cline has been removed. The incision lines are h ealed very nicely. Patient tolerating diet, except that she has some nausea and pain is under contr ol. Leukocyte count is normal. Blood pressure is normal. PLAN: Patient can be discharged from surgical point of view to be followed by Dr. Desir in his offi ce next week because the infectious disease has suggested to continue p.o. antibiotic Keflex. We ar e going to write it for her. Pain medication is going to be given to her and also I instructed the patient to do some physical therapy to prevent frozen shoulder on the left side, she understood and she is going to do that. Dictated By: ELVI MONACO/DANIELA Conf#: [id number] DID#: [id number]
== END 2016-05-20 17:14 | disposition home or self-care (01) | DRG 600 ==
LOC: E/R 21:58 → PP2 05-15 01:28
PROVIDERS: ADMIT Internal Medicine; ATTEND Internal Medicine
DX: N61.0 Mastitis without abscess (principal); L76.34 Postprocedural seroma of skin and subcutaneous tissue following other procedure; C50.912 Malignant neoplasm of unspecified site of left female breast; Y83.8 Other surgical procedures as the cause of abnormal reaction of the patient, or of later complication, without mention of misadventure at the time of the procedure; E66.9 Obesity, unspecified; Z68.33 Body mass index [BMI] 33.0-33.9, adult; E11.9 Type 2 diabetes mellitus without complications; E78.5 Hyperlipidemia, unspecified; J45.909 Unspecified asthma, uncomplicated; R52 Pain, unspecified; Z90.12 Acquired absence of left breast and nipple; Z79.84 Long term (current) use of oral hypoglycemic drugs
CPT/HCPCS: 36415; 71010; 71250; 80048; 80053; 80202; 82962; 83036; 83605; 85025; 85610; 85730; 87040; 96365; 96375; J0692; J0696; J1815; J2270; J2405; J3370; J7030; J7050

== ENCOUNTER 2016-08-11 10:56 | Emergency (ER) | payer OTHER ==
[~2016-08-11] VITALS: Ht 152.4 cm; Wt 73.5 kg
[2016-08-11 11:02] VITALS: Ht 152.4 cm; Wt 73.5 kg
[2016-08-11] MEDS ORDERED: CEFTRIAXONE 1 GM/50 ML (PMX) 50 ML IVPB STA (13:22)
[2016-08-11] MEDS ORDERED: SODIUM CHLORIDE 0.9% 1L BAG IV* STA (13:22)
--- NOTE | 2016-08-11 13:26 | ERA ---
ER Documentation Chief Complaint Date/Time DATE: 08/11/16 TIME: 13:24 Chief Complaint Sennt from for eval worsening SOB Hx of Breast CA HPI Patient is a 56-year-old female with breast and kidney cancer who presents with gradual onset, constant, moderate shortness of breath for 3 days. She reports having diaphoresis and low-grade fever, with a high temperature of 100.1 Fahrenheit measured at home. She reports cough productive of yellow sputum. She reports pain in her upper back that is worse with deep inspiration. She reports multiple episodes of nonbloody vomiting and non-bloody, non-melanotic diarrhea. She denies chest pain. She received chemotherapy in early June, and is scheduled to receive her next dose of chemotherapy in early August. ROS All systems reviewed and are negative except as per history of present illness. Medications Home Meds Reported Medications Betamet Diprop/Prop Gly (Betamethasone Dp 0.05% Lotion) 60 Ml Lotion, 60 ML TP, BOTTLE 05/01/16 Mometasone-Formoterol (Dulera) 200-5 Mcg/Inh - 13 Gm Hfa.aer.ad, 1 PUFFS INHALATION BID, #1 INHALER 05/01/16 Gabapentin* (Gabapentin*) 300 Mg Capsule, 300 MG PO BID, #60 CAP 05/01/16 Fenofibrate Nanocrystallized* (Fenofibrate*) 145 Mg Tablet, 145 MG PO DAILY, TAB 04/21/15 Montelukast Sodium* (Singulair*) 10 Mg Tablet, 10 MG PO QHS, #30 TAB 04/21/15 Loratadine* (Claritin*) 10 Mg Capsule, 10 MG PO DAILY, CAP 04/21/15 Metformin Hcl* (Metformin Hcl*) 1,000 Mg Tablet, 1000 MG PO BID WITH MEALS, #30 TAB 04/21/15 Venlafaxine Hcl* (Venlafaxine Hcl ER*) 75 Mg Cap.er.24h, 75 MG PO DAILY, CAP 04/21/15 Discontinued Scripts Hydrocodone Bit-Acetaminophen (Hydrocodone Bit-APAP) 5-325MG Tablet, 2 TAB PO Q6H Y for SEVERE PAIN LEVEL 7-10, #30 TAB Prov:CHUNGZIGGYSILASMAURO 05/02/16 Allergies Allergies: Coded Allergies: No Known Allergy (Unverified , 08/11/16) PMhx/Soc Past medical history: Breast cancer, kidney cancer, diabetes Past surgical history: Mastectomy Social history: Ex-smoker, denies alcohol or drugs Medical and Surgical Hx: pt denies Medical Hx, pt denies Surgical Hx History of Surgery: Yes (LT BREAST MASTECTOMY (04-30-16)) Anesthesia Reaction: No Hx Neurological Disorder: No Hx Respiratory Disorders: Yes (Asthma) Hx Cardiac Disorders: Yes (HTN ) Hx Psychiatric Problems: No Hx Miscellaneous Medical Probl: Yes (DM, BREAST CA, RENAL CA) Hx Alcohol Use: No Hx Substance Use: No Hx Tobacco Use: No Smoking Status: Never smoker FmHx Family History: No coronary disease, No diabetes Physical Exam Vitals Vital Signs Date Time Temp Pulse Resp B/P Pulse Ox O2 Delivery O2 Flow Rate FiO2 08/11/16 18:07 98.8 84 20 144/84 95 08/11/16 17:22 74 20 137/72 95 08/11/16 14:52 81 20 134/78 95 08/11/16 14:04 Nasal Cannula 2 08/11/16 11:02 98.5 115 20 134/84 95 Physical Exam Const: Alert, no acute distress Head: Atraumatic Eyes: Normal Conjunctiva, no pallor, no icterus ENT: Normal External Ears, Nose and Mouth. Moist mucous membranes Neck: Full range of motion..~ No meningismus. No JVD Resp: Clear to auscultation bilaterally, no wheezes, no rales Cardio: Mild tachycardia, regular rhythm, no murmurs Abd: Soft, non tender, non distended. Skin: No petechiae or rashes Back: No midline or flank tenderness Ext: No cyanosis, or edema Neur: Awake and alert, cranial nerves II through XII intact bilaterally, strength and sensation full in 4 extremities Psych: Normal Mood and Affect Result Diagram: 08/11/16 1350 08/11/16 1350 Results 24 hrs Laboratory Tests Test 08/11/16 13:50 08/11/16 18:00 White Blood Count 19.410^3/ul Red Blood Count 4.1910^6/ul Hemoglobin 12.4g/dl Hematocrit 35.2% Mean Corpuscular Volume 84.0fl Mean Corpuscular Hemoglobin 29.6pg Mean Corpuscular Hemoglobin Concent 35.2g/dl Red Cell Distribution Width 13.8% Platelet Count 97682^3/UL Mean Platelet Volume 10.9fl Neutrophils % 65.0% Lymphocytes % 14.0% Monocytes % 3.0% Eosinophils % 18.0% Neutrophils # 12.610^3/ul Lymphocytes # 2.710^3/ul Monocytes # 0.610^3/ul Eosinophils # 3.510^3/ul Prothrombin Time 12.2Sec Prothrombin Time Ratio 1.0 INR International Normalized Ratio 0.91 Activated Partial Thromboplast Time 27.1Sec Sodium Level 140mmol/L Potassium Level 3.8mmol/L Chloride Level 103mmol/L Carbon Dioxide Level 24mmol/L Anion Gap 17 Blood Urea Nitrogen 24mg/dl Creatinine 0.84mg/dl Glucose Level 96mg/dl Lactic Acid Level 2.0mmol/L Calcium Level 9.9mg/dl Total Bilirubin 0.0mg/dl Direct Bilirubin 0.00mg/dl Indirect Bilirubin 0.0mg/dl Aspartate Amino Transf (AST/SGOT) 22IU/L Alanine Aminotransferase (ALT/SGPT) 35IU/L Alkaline Phosphatase 161IU/L Troponin I < 0.012ng/ml Total Protein 8.7g/dl Albumin 5.0g/dl Globulin 3.70g/dl Albumin/Globulin Ratio 1.35 Urine Color YELLOW Urine Clarity CLEAR Urine pH 6.0 Urine Specific [place] 1.015 Urine Ketones NEGATIVEmg/dL Urine Nitrite NEGATIVEmg/dL Urine Bilirubin NEGATIVEmg/dL Urine Urobilinogen NEGATIVEmg/dL Urine Leukocyte Esterase NEGATIVELeu/ul Urine Hemoglobin NEGATIVEmg/dL Urine Glucose NEGATIVEmg/dL Urine Total Protein NEGATIVEmg/dl Current Medications Medications (Trade) Dose Ordered Sig/Kianna Route PRN Reason Start Time Stop Time Status Last Admin Dose Admin Sodium Chloride 2280 ml 2,280 ml BOLUS OVER 2 HOURS STAT IV* 08/11/16 13:22 08/11/16 13:24 DC 08/11/16 13:22 Ceftriaxone Sodium (Rocephin) 50 ml @ 100 mls/hr ONCE STAT IVPB 08/11/16 13:22 08/11/16 13:51 DC 08/11/16 13:22 Lidocaine (Xylocaine 1% (Mpf)) 5 ml ONCE ONCE SC 08/11/16 18:00 08/11/16 18:01 DC Procedures/MDM EKG read by me: Time 1257, rate 114 Rhythm: Sinus tachycardia Broussard: Normal Intervals: Normal ST-T waves: no ischemic changes Ectopy: No Q-waves: No Impression: Sinus tachycardia without evidence of ischemia. MDM: Patient is a 56-year-old female with breast and renal cancer who presents to the ER with shortness of breath. She was initially tachycardic, but did not have hypoxia. She is afebrile. She does have significant leukocytosis. Her chest x-ray is unremarkable. Her lactic acid is not elevated. Urinalysis is negative. She does not have signs of acidosis. Patient does report some vomiting and diarrhea as well as productive cough. Given risk of pulmonary embolism due to the patient's underlying cancer, a CT pulmonary angiogram was ordered. The patient does not have good veins and access could not be obtained even with multiple attempts at ultrasound-guided peripheral IV. PICC nurse was called to place a PICC line to enable a CT pulmonary angiogram to be performed. On reassessment, the patient does not have tachypnea, hypoxia, or tachycardia. She was signed out to Dr. Clements at shift change. If CTPA is negative and patient continues to appear well on reassessment, she can be discharged home. Otherwise, if there are concerning findings on CT, she may require admission. Departure Diagnosis: Primary Impression: Shortness of breath Condition: Stable DILCIA AGUILAR MD Aug 11, 2016 13:26
[2016-08-11 14:22] LABS: ADD SCAN DIFF NO
--- NOTE | 2016-08-11 14:22 | RADRPT ---
PROCEDURE: Chest Radiograph. CLINICAL INDICATION: Sepsis TECHNIQUE: Single frontal chest radiograph. COMPARISON: Chest radiograph 05/14/2016 FINDINGS: Heart size is within normal limits. Atherosclerotic calcifications are present. No infiltrate or effusion is seen. The bones are intact. IMPRESSION: 1. No evidence of acute cardiopulmonary disease. 2. Atherosclerotic vascular disease. RPTAT: KK .Osmel Sandhu MD, MD Date Time Electronically viewed and signed by .Osmel Sandhu MD, MD on 08/11/2016 14:22 .B/
[2016-08-11 14:24] LABS: ABNORMAL IP MESSAGE 1; HEMATOCRIT 35.2 % (37.0-47.0); HEMOGLOBIN 12.4 g/dl (12.0-16.0); MEAN CORPUSCULAR HEMOGLOBIN 29.6 pg (29.0-33.0); MEAN CORPUSCULAR HGB CONC 35.2 g/dl (32.0-37.0); MEAN PLATELET VOLUME 10.9 fl (7.4-10.4); PLATELET COUNT 250 10^3/UL (140-415); RED BLOOD COUNT 4.19 10^6/ul (4.20-5.40); RED CELL DISTRIBUTION WIDTH 13.8 % (11.5-14.5); WHITE BLOOD COUNT 19.4 10^3/ul (4.8-10.8)
[2016-08-11 14:39] LABS: PARTIAL THROMBOPLASTIN TIME 27.1 Sec (25.0-35.0)
[2016-08-11 14:42] LABS: ALANINE AMINOTRANSFERASE 35 IU/L (13-69); ALBUMIN/GLOBULIN RATIO 1.35; ALKALINE PHOSPHATASE 161 IU/L (42-121); ANION GAP 17 (8-16); ASPARTATE AMINO TRANSFERASE 22 IU/L (15-46); BLOOD UREA NITROGEN 24 mg/dl (7-20); CALCIUM 9.9 mg/dl (8.4-10.2); CARBON DIOXIDE 24 mmol/L (21-31); CHLORIDE 103 mmol/L (97-110); CREATININE 0.84 mg/dl (0.44-1.00); GLUCOSE 96 mg/dl (70-220); POTASSIUM 3.8 mmol/L (3.5-5.1); SODIUM 140 mmol/L (135-144); TOTAL PROTEIN 8.7 g/dl (6.1-8.1)
[2016-08-11 14:55] LABS: TROPONIN-I < 0.012 ng/ml (0.00-0.12)
[2016-08-11 15:08] LABS: EOSINOPHILS # 3.5 10^3/ul (0.0-0.5); LYMPHOCYTES # 2.7 10^3/ul (0.8-2.9); MONOCYTE # 0.6 10^3/ul (0.3-0.9); NEUTROPHIL # 12.6 10^3/ul (1.6-7.5)
[2016-08-11 15:20] LABS: INR 0.91; PROTIME 12.2 Sec (12.2-14.2)
[2016-08-11] MEDS ORDERED: LIDOCAINE 1% (MPF) 5 ML VIAL SC ONE (18:00)
[2016-08-11 18:07] VITALS: TEMP 98.8
[2016-08-11 18:25] LABS: ADD UMIC NO; UR ASCORBIC ACID 40 mg/dL (NEGATIVE); UR BILIRUBIN (Dip) NEGATIVE (NEGATIVE); UR BLOOD (Dip) NEGATIVE (NEGATIVE); UR CLARITY CLEAR (CLEAR); UR COLOR YELLOW (YELLOW); UR GLUCOSE (Dip) NEGATIVE (NEGATIVE); UR KETONES (Dip) NEGATIVE (NEGATIVE); UR LEUKOCYTE ESTERASE (Dip) NEGATIVE Leu/ul (NEGATIVE); UR NITRITE (Dip) NEGATIVE (NEGATIVE); UR SPECIFIC GRAVITY (Dip) 1.015 (1.003-1.030); UR TOTAL PROTEIN (Dip) NEGATIVE (NEGATIVE); UR UROBILINOGEN (Dip) NEGATIVE (NEGATIVE)
--- NOTE | 2016-08-12 00:11 | RADRPT ---
PROCEDURE: CHEST - 1 VIEW August 11, 2016 at 11:51 p.m. CLINICAL INDICATION: 56-year-old female for PICC line placement. TECHNIQUE: A single frontal AP upright portable view of the chest was performed. The images were reviewed on a PACS workstation. COMPARISON: Chest x-ray August 11, 2016 at 02:03 p.m. FINDINGS: There is a right-sided PICC line present with the tip of the catheter in the distal superior vena ca va. The cardiomediastinal silhouette thin normal limits. The thoracic aortic arch is mildly calcif ied. There is no evidence for an infiltrate. There is no evidence for congestive heart failure. Th ere is no evidence for pneumothorax. The osseous structures are intact. IMPRESSION: 1. Right-sided PICC line in place with the tip in the distal superior vena cava. 2. Calcified thoracic aortic arch. 3. No evidence for active cardiopulmonary disease. .Marc Cortez MD, MD Date Time Electronically viewed and signed by .Marc Cortez MD, on 08/12/2016 00:10 .M/
[2016-08-12] MEDS ORDERED: SOD CHLORIDE 0.9% 100 ML ONE (00:41)
[2016-08-12] MEDS ORDERED: IOHEXOL 300MG/ML 150 ML BTL ONE (00:41)
--- NOTE | 2016-08-12 01:50 | RADRPT ---
PROCEDURE: CTA Chest. CLINICAL INDICATION: Shortness of breath, dyspnea, rule out pulmonary embolism. TECHNIQUE: Direct spiral axial sections were obtained from the thoracic inlet to the upper abdomen with the use of 100 cc of Omnipaque-300 nonionic intravenous contrast material. Axial MIP, coronal, and sagittal reformations were obtained. The images were reviewed on a PACS workstation. CTDIvol: 2 1.13, 16.11 mGy. DLP: 595.80 mGy-cm. One or more of the following dose reduction techniques were used: - Automated exposure control. - Adjustment of the mA and/or kV according to patient size. - Use of iterative reconstruction technique. COMPARISON: Chest CT dated 05/15/2016. FINDINGS: There is no pulmonary embolism. The main pulmonary artery is normal in caliber. There is no aortic aneurysm. The heart is not enlarged. There is no pericardial effusion. A right upper extremity PICC terminates in the SVC. Subtle patchy and nodular ground-glass opacities are noted in the bilateral upper and right middle l obes. There is tree in bud nodularity in the right lower lobe. Subtle atelectatic changes are noted inferior left lower lobe. No pleural effusion or pneumothorax is identified. No suspicious thyroid lesion is seen. Multiple sub centimeter anterior and middle mediastinal lymph nodes are noted. The trachea and mainstem bronchi are patent. A 2.7 x 3.4 cm spiculated mass or collection is identified in the left breast, at the site of the pr eviously noted left breast collection. Limited evaluation of the upper abdomen is unremarkable. There is no suspicious osseous lesion. IMPRESSION: 1. No pulmonary embolism. 2. Subtle patchy and nodular ground-glass opacities in the bilateral upper and right middle lobes. This is suspicious for a multifocal infectious process, possibly atypical. 3. Tree in bud nodularity in the right lower lobe, consistent with an infectious or inflammatory br onchiolitis. 4. Multiple sub centimeter anterior and middle mediastinal lymph nodes, possibly reactive. 5. 3.4 cm spiculated mass or collection is identified in the left breast, at the site of the previo usly noted left breast collection. Correlation with mammography and/or breast ultrasound recommended . RPTAT: HTAR .Alessio Degroot MD, MD Date Time Electronically viewed and signed by .Alessio Degroot MD, on 08/12/2016 01:50 .R/
[2016-08-12] MEDS ORDERED: LEVO500T72 PO (02:32)
--- NOTE | 2016-08-12 02:36 | EN ---
Date/Time of Note Date/Time of Note DATE: 08/12/16 TIME: 02:33 ER Progress Note This patient was signed out was previously seen by Dr. Spencer. The CT read was pending. The patient is still feeling well. He did check on her. She does have a history of lung cancer as seen on CT. Also possible multiple focal atypical infection. I am going to discharge the patient with Levaquin although she is feeling well prevention of further infectious spread as patient is on chemotherapy. Primary care follow-up in next couple days and return precautions. CT chest interpretation: There is no pulmonary embolism however there are multifocal groundglass opacities that according the radiologist are possibly concerning for atypical infectious process. Spiculated mass in left breast and reactive lymph nodes are seen. No pneumothorax. No pulmonary edema. Pleural effusion. ANDREIA MONIQUE DO Aug 12, 2016 02:36
[2016-08-12 03:03] VITALS: BP 124/60; PULSE 89; RESP 18
== END 2016-08-12 03:30 | disposition home or self-care (01) ==
LOC: E/R 10:56
DX: R06.02 Shortness of breath (principal); J45.909 Unspecified asthma, uncomplicated; I10 Essential (primary) hypertension; E11.9 Type 2 diabetes mellitus without complications; R50.9 Fever, unspecified; Z85.3 Personal history of malignant neoplasm of breast; Z85.528 Personal history of other malignant neoplasm of kidney; Z79.84 Long term (current) use of oral hypoglycemic drugs
CPT/HCPCS: 36569; 71010; 71275; 76937; 80053; 81003; 83605; 84484; 85025; 85610; 85730; 87040; 87086; J0696; J7030; Q9967; Z7610; 36415; 93005; 96374; C1769

== ENCOUNTER 2016-08-28 11:28 | Emergency (ER) | payer OTHER ==
[~2016-08-28] VITALS: Ht 154.9 cm; Wt 75.0 kg
[~2016-08-28 11:28] MED LIST changes: -HYDR-3498 PO; +LEVO500T72 PO
[2016-08-28 11:41] VITALS: Ht 154.9 cm; Wt 75.0 kg
--- NOTE | 2016-08-28 14:03 | RADRPT ---
PROCEDURE: Chest x-ray CLINICAL INDICATION: Pain over PICC line TECHNIQUE: Chest single view COMPARISON: 05/14/2016 FINDINGS: There is interval placement right arm PICC line with tip in the SVC. The heart is normal in size. The pulmonary vessels are normal in caliber. The lungs are clear. The costophrenic angles are teri p. The visualized bony thorax is unremarkable. IMPRESSION: No acute cardiopulmonary disease. Interval placement right arm PICC line with tip in the SVC RPTAT: HH .Haim Gomes MD, MD Date Time Electronically viewed and signed by .Haim Gomes MD, on 08/28/2016 14:03 .W/
[2016-08-28] MEDS ORDERED: AZIT250T94 PO (14:18)
[2016-08-28] MEDS ORDERED: D-ME473S18 PO (14:18)
--- NOTE | 2016-08-28 14:21 | ERD ---
ER Documentation Chief Complaint Date/Time DATE: 08/28/16 TIME: 14:19 Chief Complaint PT with PICC line site pain, placed 15 days ago. HPI This 56-year-old female presents for evaluation of her PICC line. She also has cough and shortness of breath for the last few days. Patient is being treated for breast cancer and renal cancer. She is chemotherapy 3 weeks ago as next session scheduled next week patient has any fevers, abdominal pain, vomiting, additional symptoms. ROS All systems reviewed and are negative except as per history of present illness. Medications Home Meds Active Scripts Dextromethorphan Hb-Promethazine Hcl (Promethazine DM Syrup) 473 Ml Syrup, 5 ML PO Q6H Y for COUGH, #4 OZ Prov:LIAN PEÑA MD 08/28/16 Azithromycin* (Zithromax*) 250 Mg Tablet, 250 MG PO .ZPACK DIRECTED, #6 TAB TAKE 500 MG (2 TABS) THE FIRST DAY THEN 250 MG (1 TAB) DAYS 2-5 Prov:LIAN PEÑA MD 08/28/16 Levofloxacin* (Levaquin*) 500 Mg Tablet, 500 MG PO DAILY for 7 Days, TAB Prov:ANDREIA MONIQUE DO 08/12/16 Reported Medications Betamet Diprop/Prop Gly (Betamethasone Dp 0.05% Lotion) 60 Ml Lotion, 60 ML TP, BOTTLE 05/01/16 Mometasone-Formoterol (Dulera) 200-5 Mcg/Inh - 13 Gm Hfa.aer.ad, 1 PUFFS INHALATION BID, #1 INHALER 05/01/16 Gabapentin* (Gabapentin*) 300 Mg Capsule, 300 MG PO BID, #60 CAP 05/01/16 Fenofibrate Nanocrystallized* (Fenofibrate*) 145 Mg Tablet, 145 MG PO DAILY, TAB 04/21/15 Montelukast Sodium* (Singulair*) 10 Mg Tablet, 10 MG PO QHS, #30 TAB 04/21/15 Loratadine* (Claritin*) 10 Mg Capsule, 10 MG PO DAILY, CAP 04/21/15 Metformin Hcl* (Metformin Hcl*) 1,000 Mg Tablet, 1000 MG PO BID WITH MEALS, #30 TAB 04/21/15 Venlafaxine Hcl* (Venlafaxine Hcl ER*) 75 Mg Cap.er.24h, 75 MG PO DAILY, CAP 04/21/15 Allergies Allergies: Coded Allergies: No Known Allergy (Unverified , 08/28/16) PMhx/Soc History of Surgery: Yes (LT BREAST MASTECTOMY (04-30-16)) Anesthesia Reaction: No Hx Neurological Disorder: No Hx Respiratory Disorders: Yes (Asthma) Hx Cardiac Disorders: Yes (HTN ) Hx Psychiatric Problems: No Hx Miscellaneous Medical Probl: Yes (DM, BREAST CA, RENAL CA) Hx Alcohol Use: No Hx Substance Use: No Hx Tobacco Use: No Smoking Status: Never smoker Physical Exam Vitals Vital Signs Date Time Temp Pulse Resp B/P Pulse Ox O2 Delivery O2 Flow Rate FiO2 08/28/16 11:41 98.0 84 16 141/81 97 Physical Exam Const: [] Alert, [id number] per Head: Atraumatic Eyes: Normal Conjunctiva ENT: Normal External Ears, Nose and Mouth. Neck: Full range of motion..~ No meningismus. Resp: Clear to auscultation bilaterally Cardio: Regular rate and rhythm, no murmurs Abd: Soft, non tender, non distended. Normal bowel sounds Skin: No petechiae or rashes. There is a PICC line in place the right antecubital fossa. There is no erythema, warmth. Pulses are 2+ distally. There is no restricted range of motion weakness. Back: No midline or flank tenderness Ext: No cyanosis, or edema Neur: Awake and alert Psych: Normal Mood and Affect Results 24 hrs Patient presents with shortness breath cough last 2 days without findings of hemothorax, pneumothorax thorax, pleural effusion, additional findings to suggest PE as there is no calf swelling tachycardia or syncope or chest pain or hemoptysis., acute coronary syndrome, CHF, hypoxemia.. She has a satisfactory appearing PICC line. Patient was discharged home a short course of Zithromax and promethazine given a productive cough. Signs or symptoms do not suggest anemia there is no evidence of fever as complications of chemotherapy. Patient was discharged home with primary care follow-up. She should return for fevers, vomiting, worsening shortness breath, new worsening symptoms with primary doctor this week. Procedures/MDM EKG: Rate/Rhythm: [Normal Sinus Rhythm] rate equals 60 QRS, ST, T-waves: [No changes consistent w/ acute ischemia] Impression: [No evidence of ischemia or arrhythmia] impression-normal EKG Chest X-ray 1V Interpreted by me: Soft Tissue: No acute abnormalities Bones: No acute abnormalities Mediastinum/Cardiac Silhouette/Lungs: [No acute abnormalities]. Impression- normal 1 view chest x-ray with PICC line in place. Departure Diagnosis: Primary Impression: Acute bronchitis Bronchitis organism: unspecified organism Qualified Code: J20.9 - Acute bronchitis, unspecified organism Condition: Stable Patient Instructions: Acute Bronchitis Additional Instructions: Examines normal hoy. Cheque otro vez con russ doctor primario en el proximo alberto or regresa para mas o nueva simptomas. LIAN PEÑA MD Aug 28, 2016 14:21
== END 2016-08-28 14:39 | disposition home or self-care (01) ==
LOC: FTE 11:28
DX: J20.9 Acute bronchitis, unspecified (principal); C50.919 Malignant neoplasm of unspecified site of unspecified female breast; C64.9 Malignant neoplasm of unspecified kidney, except renal pelvis; J45.909 Unspecified asthma, uncomplicated; I10 Essential (primary) hypertension; E11.9 Type 2 diabetes mellitus without complications; Z79.84 Long term (current) use of oral hypoglycemic drugs
CPT/HCPCS: 71010; 93005; Z7502

== ENCOUNTER 2017-03-22 08:27 | Day surgery (SDC) | END 2017-03-22 12:29 | disposition home or self-care (01) ==